=== PATIENT | male | born 1940 | race Caucasian/White ===

== ENCOUNTER → 2016-07-12 | Outpatient (CLI) | payer MEDICARE ==
[~2016-07-12] MED LIST: ALBU2.5V11 NEB; ALLO100T30 PO; AMLO2.5T PO; ASPI-496 PO; BETA15CR5 TP; CEFD300C2 PO; CEPH-368 PO; CHOL10003 PO; CHOL5000 PO; COLC0.6T37 PO; DIGO125T PO; DILT180C53 PO; DILT60TA30 PO; ERGO500017 PO; FOLI-17 PO; FOLI0.8T2 PO; FURO80TA3 PO; FURO80TA77 PO; LACT1CAP24 PO; LATA2.5D3 EACHEYE; LATA2.5D3 RIGHTEYE; LEVO1CAP3 PO; LEVO500T33 PO; LEVO750T6 PO; LOSA100T6 PO; LOSA25TA5 PO; LOSA50TA6 PO; MAGN400T7 PO; METO2.5T PO; METO25TA35 PO; METO50TA82 PO; METO5TAB5 PO; OMEG1CAP39 PO; OMEP-110 PO; OXYC-223 PO; OXYC5TAB3 PO; SILO8CAP PO; SPIR25TA3 PO; TIMO10DR12 EACHEYE; TIMO5DRO5 EACHEYE; TIMO5DRO5 RIGHTEYE; [UNRECOGNIZED DRUG - REMARK]; amlodipine PO; losartin PO; timolol EACHEYE
== END | disposition home or self-care (01) ==
LOC: RAD 13:26
PROVIDERS: ATTEND Radiology Radiation Oncology
DX: C34.12 Malignant neoplasm of upper lobe, left bronchus or lung (principal); J98.11 Atelectasis; I25.10 Atherosclerotic heart disease of native coronary artery without angina pectoris; J98.4 Other disorders of lung; I10 Essential (primary) hypertension
CPT/HCPCS: 71250

== ENCOUNTER → 2016-07-18 | Outpatient (CLI) | payer MEDICARE ==
[~2016-07-18] MED LIST changes: -CEFD300C2 PO; +CEFD300C37 PO
== END | disposition home or self-care (01) ==
LOC: ROC 13:18
PROVIDERS: ATTEND Radiology Radiation Oncology
DX: C34.11 Malignant neoplasm of upper lobe, right bronchus or lung (principal); R91.8 Other nonspecific abnormal finding of lung field; Z92.21 Personal history of antineoplastic chemotherapy
CPT/HCPCS: G0463

== ENCOUNTER → 2016-11-13 | Outpatient (CLI) | payer MEDICARE ==
[~2016-11-13] MED LIST changes: -LEVO500T33 PO; +LEVO500T47 PO; -OXYC-223 PO; +OXYC-306 PO
== END | disposition home or self-care (01) ==
LOC: CFH 09:50
PROVIDERS: ATTEND Radiology Radiation Oncology
DX: J84.10 Pulmonary fibrosis, unspecified (principal); J92.9 Pleural plaque without asbestos; I25.10 Atherosclerotic heart disease of native coronary artery without angina pectoris; C34.10 Malignant neoplasm of upper lobe, unspecified bronchus or lung; M79.89 Other specified soft tissue disorders; I10 Essential (primary) hypertension
CPT/HCPCS: 71250

== ENCOUNTER 2016-12-03 15:46 | Inpatient (IN) | payer MEDICARE ==
[~2016-12-03] VITALS: Ht 190.5 cm; Wt 102.7 kg
[2016-12-03] MEDS ORDERED: SODIUM CHLORIDE FLUSH 10ML SYR IVF ONE (16:30)
[2016-12-03 16:53] LABS: HEMATOCRIT 41.8 % (39.2-51.8); HEMOGLOBIN 14.1 g/dL (13.7-18.0); WHITE BLOOD COUNT 16.6 x10^3/uL (3.4-10)
[2016-12-03 16:54] LABS: BLOOD UREA NITROGEN 31 mg/dL (7-18)
[2016-12-03 16:59] LABS: ASPARTATE AMINO TRANSFERASE 19 U/L (15-37)
[2016-12-03 17:00] LABS: IS PT STATUS REG ER OR PRE ER? YES
[2016-12-03] MEDS ORDERED: AZITHROMYCIN 500 MG in SODIUM CHLORIDE 0.9% 250 ML IVPB ONE (18:00)
[2016-12-03] MEDS ORDERED: CEFTRIAXONE PMX 1GM/50ML 50 ML IVPB ONE (18:00)
[2016-12-03] MEDS ORDERED: CEFTRIAXONE PMX 1GM/50ML 50 ML ONE (18:29)
[2016-12-03] MEDS ORDERED: SODIUM CHLORIDE FLUSH 10ML SYR IVF PRN (18:30)
[2016-12-03] MEDS ORDERED: LABETALOL 5MG/ML, 20ML IVPush PRN (19:00)
[2016-12-03] MEDS ORDERED: DOCUSATE 100 MG CAPSULE PO PRN (19:00)
[2016-12-03] MEDS ORDERED: ACETAMINOPHEN 325 MG TABLET PO PRN (19:00)
[2016-12-03] MEDS ORDERED: morphine SULFATE 10 MG/ML, 1ML IVPush PRN (19:00)
[2016-12-03] MEDS ORDERED: ONDANSETRON 2MG/ML, 2ML IVPush PRN (19:00)
[2016-12-03 21:30] VITALS: BP 132/80
[2016-12-03] MEDS: ENOXAPARIN 40 MG/0.4 ML SQ SCH (22:26)
[2016-12-03] MEDS: PIPERACILLIN/TAZO/PMX 4.5GM 100 ML IV SCH (22:26)
[2016-12-03] MEDS: METOPROLOL TARTRATE 25 MG TABLET PO SCH (22:27)
[2016-12-03] MEDS: LOSARTAN 25MG TABLET PO SCH (22:27)
[2016-12-03] MEDS: TIMOLOL OPHTH 0.5%, 5ML RIGHTEYE SCH (22:27)
[2016-12-03] MEDS: TRAZODONE 50MG TABLET PO PRN (22:52)
[2016-12-03] MEDS: GUAIFENESIN/DM 200-20MG, 10ML UDC PO PRN (22:56)
[2016-12-03] MEDS ORDERED: ALBUTEROL SULFATE 2.5 MG/3 ML NPPB PRN (23:00)
[2016-12-04 01:48] VITALS: BP 112/73
[2016-12-04 05:39] LABS: HEMATOCRIT 41.5 % (39.2-51.8); WHITE BLOOD COUNT 15.8 x10^3/uL (3.4-10)
[2016-12-04 06:00] LABS: ASPARTATE AMINO TRANSFERASE 18 U/L (15-37); BLOOD UREA NITROGEN 33 mg/dL (7-18)
[2016-12-04] MEDS: PIPERACILLIN/TAZO/PMX 4.5GM 100 ML IV SCH ×3 (06:23→23:30)
[2016-12-04] MEDS: LATANOPROST OPHTH 0.005%, 2.5ML RIGHTEYE SCH (08:42)
[2016-12-04] MEDS: ASPIRIN 81 MG TABLET EC PO SCH (08:42)
[2016-12-04] MEDS: METOPROLOL TARTRATE 25 MG TABLET PO SCH ×2 (08:42→21:51)
[2016-12-04 08:51] VITALS: BP 116/66
[2016-12-04 13:59] VITALS: BP 101/68
[2016-12-04 19:07] VITALS: BP 97/59
[2016-12-04] MEDS: AZITHROMYCIN 500 MG in SODIUM CHLORIDE 0.9% 250 ML IV SCH (19:10)
[2016-12-04 21:50] VITALS: BP 126/76
[2016-12-04] MEDS: LOSARTAN 25MG TABLET PO SCH (21:50)
[2016-12-04] MEDS: ENOXAPARIN 40 MG/0.4 ML SQ SCH (21:51)
[2016-12-04] MEDS: TIMOLOL OPHTH 0.5%, 5ML RIGHTEYE SCH (21:51)
[2016-12-05] MEDS: GUAIFENESIN/DM 200-20MG, 10ML UDC PO PRN ×3 (01:46→23:44)
[2016-12-05 01:59] VITALS: BP 99/64
[2016-12-05 07:39] LABS: HEMATOCRIT 40.8 % (39.2-51.8); HEMOGLOBIN 13.7 g/dL (13.7-18.0); WHITE BLOOD COUNT 12.2 x10^3/uL (3.4-10)
[2016-12-05 07:41] LABS: BLOOD UREA NITROGEN 39 mg/dL (7-18)
[2016-12-05] MEDS: METOPROLOL TARTRATE 25 MG TABLET PO SCH ×2 (08:09→20:50)
[2016-12-05] MEDS: PIPERACILLIN/TAZO/PMX 4.5GM 100 ML IV SCH ×2 (08:09→17:24)
[2016-12-05] MEDS: LATANOPROST OPHTH 0.005%, 2.5ML RIGHTEYE SCH (08:10)
[2016-12-05] MEDS: ASPIRIN 81 MG TABLET EC PO SCH (08:10)
[2016-12-05 08:13] VITALS: BP 115/65
[2016-12-05 09:12] VITALS: BP 110/66
[2016-12-05 14:15] VITALS: BP 96/63
[2016-12-05] MEDS: ENOXAPARIN 40 MG/0.4 ML SQ SCH (15:17)
[2016-12-05] MEDS: SODIUM CHLORIDE 0.9% 500 ML IV SCH (17:24)
[2016-12-05 19:32] VITALS: BP 106/69
[2016-12-05] MEDS: TIMOLOL OPHTH 0.5%, 5ML RIGHTEYE SCH (20:50)
[2016-12-05] MEDS: AZITHROMYCIN 500 MG in SODIUM CHLORIDE 0.9% 250 ML IV SCH (20:51)
[2016-12-05] MEDS: TRAZODONE 50MG TABLET PO PRN (23:44)
[2016-12-06] MEDS: PIPERACILLIN/TAZO/PMX 4.5GM 100 ML IV SCH ×3 (00:43→17:30)
[2016-12-06] MEDS: SODIUM CHLORIDE 0.9% 500 ML IV SCH ×4 (00:43→20:45)
[2016-12-06] MEDS: TRAZODONE 50MG TABLET PO PRN ×2 (00:47→22:24)
[2016-12-06 03:06] VITALS: BP 103/70
[2016-12-06 05:53] LABS: HEMOGLOBIN 12.8 g/dL (13.7-18.0); WHITE BLOOD COUNT 9.4 x10^3/uL (3.4-10)
[2016-12-06 05:54] LABS: BLOOD UREA NITROGEN 44 mg/dL (7-18)
[2016-12-06] MEDS: METOPROLOL TARTRATE 25 MG TABLET PO SCH ×2 (08:02→20:45)
[2016-12-06] MEDS: ASPIRIN 81 MG TABLET EC PO SCH (08:02)
[2016-12-06] MEDS: LATANOPROST OPHTH 0.005%, 2.5ML RIGHTEYE SCH (08:03)
[2016-12-06 08:20] VITALS: BP 121/74
[2016-12-06 10:27] LABS: TOTAL IRON BINDING CAPACITY 270 mcg/dL (250-450)
[2016-12-06 13:20] VITALS: BP 119/76
[2016-12-06] MEDS: ENOXAPARIN 40 MG/0.4 ML SQ SCH (18:01)
[2016-12-06 18:32] VITALS: BP 135/82
[2016-12-06] MEDS: AZITHROMYCIN 500 MG in SODIUM CHLORIDE 0.9% 250 ML IV SCH (20:42)
[2016-12-06] MEDS: TIMOLOL OPHTH 0.5%, 5ML RIGHTEYE SCH (20:45)
[2016-12-07] MEDS: PIPERACILLIN/TAZO/PMX 4.5GM 100 ML IV SCH ×3 (00:48→18:09)
[2016-12-07 03:01] VITALS: BP 125/77
[2016-12-07] MEDS: SODIUM CHLORIDE 0.9% 500 ML IV SCH ×3 (04:48→23:40)
[2016-12-07] MEDS: GUAIFENESIN/DM 200-20MG, 10ML UDC PO PRN (04:48)
[2016-12-07 05:25] LABS: BLOOD UREA NITROGEN 43 mg/dL (7-18)
[2016-12-07 08:42] VITALS: BP 157/85
[2016-12-07] MEDS: LATANOPROST OPHTH 0.005%, 2.5ML RIGHTEYE SCH (08:44)
[2016-12-07] MEDS: METOPROLOL TARTRATE 25 MG TABLET PO SCH ×2 (08:44→21:38)
[2016-12-07] MEDS: ASPIRIN 81 MG TABLET EC PO SCH (08:44)
[2016-12-07 13:50] VITALS: BP 149/77
[2016-12-07] MEDS: ENOXAPARIN 40 MG/0.4 ML SQ SCH (19:00)
[2016-12-07] MEDS ORDERED: ONDANSETRON 2MG/ML, 2ML IVPush PRN (19:30)
[2016-12-07] MEDS ORDERED: ACETAMINOPHEN 325 MG TABLET PO PRN (19:30)
[2016-12-07] MEDS ORDERED: DOCUSATE 100 MG CAPSULE PO PRN (19:30)
[2016-12-07 20:00] VITALS: BP 155/89
[2016-12-07] MEDS: TIMOLOL OPHTH 0.5%, 5ML RIGHTEYE SCH (21:00)
[2016-12-07] MEDS: AZITHROMYCIN 500 MG in SODIUM CHLORIDE 0.9% 250 ML IV SCH (21:37)
[2016-12-07] MEDS: TRAZODONE 50MG TABLET PO PRN (23:44)
[2016-12-08] MEDS: PIPERACILLIN/TAZO/PMX 4.5GM 100 ML IV SCH ×3 (01:18→17:11)
[2016-12-08 02:05] VITALS: BP 141/82
[2016-12-08] MEDS: GUAIFENESIN/DM 200-20MG, 10ML UDC PO PRN ×2 (03:05→18:28)
[2016-12-08 05:23] LABS: HEMATOCRIT 37.3 % (39.2-51.8); HEMOGLOBIN 12.4 g/dL (13.7-18.0); WHITE BLOOD COUNT 8.3 x10^3/uL (3.4-10)
[2016-12-08 05:39] LABS: BLOOD UREA NITROGEN 38 mg/dL (7-18)
[2016-12-08 07:40] VITALS: BP 161/99
[2016-12-08] MEDS: ASPIRIN 81 MG TABLET EC PO SCH (08:57)
[2016-12-08] MEDS: LATANOPROST OPHTH 0.005%, 2.5ML RIGHTEYE SCH (08:57)
[2016-12-08] MEDS: SODIUM CHLORIDE 0.9% 500 ML IV SCH ×3 (08:57→23:30)
[2016-12-08] MEDS: METOPROLOL TARTRATE 25 MG TABLET PO SCH ×2 (08:57→20:32)
[2016-12-08] MEDS: ENOXAPARIN 40 MG/0.4 ML SQ SCH (08:59)
[2016-12-08 16:00] VITALS: BP 159/101
[2016-12-08] MEDS: LABETALOL 5MG/ML, 20ML IVPush PRN (16:55)
[2016-12-08] MEDS ORDERED: ALBUTEROL SULFATE 2.5 MG/3 ML ONE (18:44)
[2016-12-08 19:25] VITALS: BP 138/83
[2016-12-08] MEDS: TIMOLOL OPHTH 0.5%, 5ML RIGHTEYE SCH (20:32)
[2016-12-08] MEDS: AZITHROMYCIN 500 MG in SODIUM CHLORIDE 0.9% 250 ML IV SCH (20:32)
[2016-12-08] MEDS ORDERED: ALBUTEROL SULFATE 2.5 MG/3 ML NPPB PRN (23:00)
[2016-12-09] MEDS: PIPERACILLIN/TAZO/PMX 4.5GM 100 ML IV SCH ×3 (01:38→17:24)
[2016-12-09 01:39] VITALS: BP 153/92
[2016-12-09] MEDS: GUAIFENESIN/DM 200-20MG, 10ML UDC PO PRN (01:53)
[2016-12-09] MEDS: SODIUM CHLORIDE 0.9% 500 ML IV SCH (03:56)
[2016-12-09 05:45] LABS: BLOOD UREA NITROGEN 36 mg/dL (7-18)
[2016-12-09] MEDS: METOPROLOL TARTRATE 25 MG TABLET PO SCH ×2 (08:18→22:07)
[2016-12-09] MEDS: ASPIRIN 81 MG TABLET EC PO SCH (08:18)
[2016-12-09] MEDS: LATANOPROST OPHTH 0.005%, 2.5ML RIGHTEYE SCH (08:19)
[2016-12-09 08:48] VITALS: BP 170/98
[2016-12-09 10:10] VITALS: BP 160/101
[2016-12-09] MEDS: LABETALOL 5MG/ML, 20ML IVPush PRN (10:15)
[2016-12-09 13:46] VITALS: BP 150/91
[2016-12-09] MEDS: ENOXAPARIN 40 MG/0.4 ML SQ SCH (19:00)
[2016-12-09 20:48] VITALS: BP 154/96
[2016-12-09] MEDS: TIMOLOL OPHTH 0.5%, 5ML RIGHTEYE SCH (22:07)
[2016-12-10] MEDS: PIPERACILLIN/TAZO/PMX 4.5GM 100 ML IV SCH ×2 (03:22→10:09)
[2016-12-10 03:27] VITALS: BP 168/96
[2016-12-10] MEDS: GUAIFENESIN/DM 200-20MG, 10ML UDC PO PRN (04:49)
[2016-12-10 05:19] LABS: BLOOD UREA NITROGEN 33 mg/dL (7-18)
[2016-12-10 08:39] VITALS: BP 177/96
[2016-12-10] MEDS: METOPROLOL TARTRATE 25 MG TABLET PO SCH (10:09)
[2016-12-10] MEDS: ASPIRIN 81 MG TABLET EC PO SCH (10:09)
[2016-12-10] MEDS: LATANOPROST OPHTH 0.005%, 2.5ML RIGHTEYE SCH (10:09)
[2016-12-10] MEDS ORDERED: FUROSEMIDE 40 MG/4 ML IV ONE (12:00)
[2016-12-10 14:31] VITALS: BP 142/88
[2016-12-10] MEDS ORDERED: CEFD300C37 PO (15:11)
[2016-12-10] MEDS ORDERED: FURO40TA6 PO (16:11)
== END 2016-12-10 18:30 | disposition home or self-care (01) | DRG 871 ==
LOC: ED 17:01 → EDIP 18:12 → 5SO 21:10
PROVIDERS: ADMIT Internal Medicine; ATTEND Internal Medicine
DX: A41.9 Sepsis, unspecified organism (principal); J10.08 Influenza due to other identified influenza virus with other specified pneumonia; J96.01 Acute respiratory failure with hypoxia; I50.43 Acute on chronic combined systolic (congestive) and diastolic (congestive) heart failure; J70.0 Acute pulmonary manifestations due to radiation; N17.9 Acute kidney failure, unspecified; E44.0 Moderate protein-calorie malnutrition; J15.9 Unspecified bacterial pneumonia; I13.0 Hypertensive heart and chronic kidney disease with heart failure and stage 1 through stage 4 chronic kidney disease, or unspecified chronic kidney disease; C34.90 Malignant neoplasm of unspecified part of unspecified bronchus or lung; E87.2 Acidosis; N39.0 Urinary tract infection, site not specified; N18.3 Chronic kidney disease, stage 3 (moderate); D64.9 Anemia, unspecified; E11.22 Type 2 diabetes mellitus with diabetic chronic kidney disease; E87.5 Hyperkalemia; E87.8 Other disorders of electrolyte and fluid balance, not elsewhere classified; I48.2 Chronic atrial fibrillation; H91.90 Unspecified hearing loss, unspecified ear; Z66 Do not resuscitate; K46.9 Unspecified abdominal hernia without obstruction or gangrene; M10.9 Gout, unspecified; N40.0 Benign prostatic hyperplasia without lower urinary tract symptoms; Z88.8 Allergy status to other drugs, medicaments and biological substances; Z97.0 Presence of artificial eye; Z90.49 Acquired absence of other specified parts of digestive tract; Z85.118 Personal history of other malignant neoplasm of bronchus and lung; Z85.528 Personal history of other malignant neoplasm of kidney; Z87.891 Personal history of nicotine dependence; Z92.21 Personal history of antineoplastic chemotherapy; Z92.3 Personal history of irradiation; Y84.2 Radiological procedure and radiotherapy as the cause of abnormal reaction of the patient, or of later complication, without mention of misadventure at the time of the procedure
CPT/HCPCS: 36415; 71010; 76770; 80048; 80053; 81001; 82570; 83540; 83550; 83605; 83735; 83880; 84100; 84145; 84300; 84484; 85025; 87040; 87070; 87077; 87205; 87324; 93005; 94640; 96365; 96367; J0456; J0696; J1940; J2543; J7613; J7040; J7050

== ENCOUNTER → 2017-03-10 | Outpatient (CLI) | payer MEDICARE ==
[~2017-03-10] MED LIST changes: +FURO40TA6 PO
== END | disposition home or self-care (01) ==
LOC: CFH 09:44
PROVIDERS: ATTEND Radiology Radiation Oncology
DX: C34.10 Malignant neoplasm of upper lobe, unspecified bronchus or lung (principal); R91.1 Solitary pulmonary nodule; J90 Pleural effusion, not elsewhere classified
CPT/HCPCS: 71250

== ENCOUNTER → 2017-03-13 | Outpatient (CLI) | payer MEDICARE | LOC: ROC 12:44 | PROVIDERS: ATTEND Radiology Radiation Oncology | DX: C34.12 Malignant neoplasm of upper lobe, left bronchus or lung (principal); Z88.8 Allergy status to other drugs, medicaments and biological substances; Z79.891 Long term (current) use of opiate analgesic | CPT/HCPCS: G0463 ==

== ENCOUNTER → 2017-04-01 | Outpatient (CLI) | payer MEDICARE ==
[~2017-04-01] MED LIST changes: +FURO20TA3 PO
[2017-04-01 11:40] LABS: BASOPHILS # (AUTO) 0.03 x10^3/uL (0-0.1); BASOPHILS % (AUTO) 1 % (0-1); EOSINOPHILS # (AUTO) 0.15 x10^3/uL (0-0.4); EOSINOPHILS % (AUTO) 2 % (1-7); LYMPHOCYTES # (AUTO) 1.14 x10^3/uL (1-3.4); LYMPHOCYTES % (AUTO) 18 % (22-44); MD NO; MEAN CORPUSCULAR HEMOGLOBIN 35.2 pg (27.5-34.5); MEAN CORPUSCULAR HGB CONC 34.3 g/dL (33.2-36.2); MEAN CORPUSCULAR VOLUME 102.7 fL (81-97); MEAN PLATELET VOLUME 7.4 fL (7.4-10.4); MONOCYTES # (AUTO) 0.68 x10^3/uL (0.2-0.8); MONOCYTES % (AUTO) 11 % (2-9); NEUTROPHILS # (AUTO) 4.48 x10^3/uL (1.8-6.8); NEUTROPHILS % (AUTO) 69 % (42-75); PLATELET COUNT 249 x10^3/uL (130-400); RED BLOOD COUNT 4.15 x10^6/uL (4.38-5.82); RED CELL DISTRIBUTION WIDTH 14.2 % (9.4-14.8)
[2017-04-01 12:12] LABS: ALBUMIN 3.3 g/dL (3.4-5.0); ANION GAP 7 mmol/L (5-15); CALCIUM 8.7 mg/dL (8.5-10.1); CHLORIDE 99 mmol/L (98-107)
[2017-04-01 12:16] LABS: ALANINE AMINOTRANSFERASE 33 U/L (12-78); ALKALINE PHOSPHATASE 85 U/L (45-117); BILIRUBIN,TOTAL 0.5 mg/dL (0.2-1.0); CREATININE 1.23 mg/dL (0.7-1.3); TOTAL PROTEIN 6.9 g/dL (6.4-8.2)
== END | disposition home or self-care (01) ==
LOC: STAR 10:18
PROVIDERS: ATTEND Surgery
DX: R94.31 Abnormal electrocardiogram [ECG] [EKG] (principal); K43.2 Incisional hernia without obstruction or gangrene
CPT/HCPCS: 36415; 80053; 85025; 93005

== ENCOUNTER → 2017-07-10 | Outpatient (CLI) | payer MEDICARE | END | disposition home or self-care (01) | LOC: ROC 10:03 | PROVIDERS: ATTEND Radiology Radiation Oncology | DX: C34.12 Malignant neoplasm of upper lobe, left bronchus or lung (principal) | CPT/HCPCS: G0463 ==

== ENCOUNTER 2017-08-07 11:54 | Inpatient (IN) | payer MEDICARE ==
[~2017-08-07] VITALS: Ht 190.5 cm; Wt 103.0 kg
[2017-08-07] MEDS ORDERED: ALBUTEROL/IPRATROPIUM 2.5MG/0.5MG, 3 ML ONE (12:56)
[2017-08-07] MEDS ORDERED: SODIUM CHLORIDE FLUSH 10ML SYR IVF ONE (13:00)
[2017-08-07] MEDS ORDERED: ALBUTEROL/IPRATROPIUM 2.5MG/0.5MG, 3 ML NPPB ONE ×2 (13:00→15:30)
[2017-08-07] MEDS ORDERED: BUDE10.2 INH (13:07)
[2017-08-07] MEDS ORDERED: LOSA25TA5 PO (13:07)
[2017-08-07 13:08] LABS: BASOPHILS # (AUTO) 0.03 x10^3/uL (0-0.1); BASOPHILS % (AUTO) 0 % (0-1); EOSINOPHILS # (AUTO) 0.21 x10^3/uL (0-0.4); EOSINOPHILS % (AUTO) 3 % (1-7); LYMPHOCYTES % (AUTO) 13 % (22-44); MD NO; MEAN CORPUSCULAR HEMOGLOBIN 34.7 pg (27.5-34.5); MEAN CORPUSCULAR HGB CONC 33.6 g/dL (33.2-36.2); MEAN CORPUSCULAR VOLUME 103.4 fL (81-97); MEAN PLATELET VOLUME 7.4 fL (7.4-10.4); MONOCYTES # (AUTO) 0.47 x10^3/uL (0.2-0.8); MONOCYTES % (AUTO) 6 % (2-9); NEUTROPHILS # (AUTO) 5.79 x10^3/uL (1.8-6.8); NEUTROPHILS % (AUTO) 77 % (42-75); PLATELET COUNT 253 x10^3/uL (130-400); RED BLOOD COUNT 4.12 x10^6/uL (4.38-5.82); RED CELL DISTRIBUTION WIDTH 14.7 % (9.4-14.8)
[2017-08-07 13:21] LABS: ALANINE AMINOTRANSFERASE 45 U/L (12-78); ALBUMIN 3.3 g/dL (3.4-5.0); ANION GAP 8 mmol/L (5-15); CALCIUM 8.3 mg/dL (8.5-10.1); CHLORIDE 100 mmol/L (98-107); CREATININE 1.27 mg/dL (0.7-1.3)
[2017-08-07 13:24] LABS: ALKALINE PHOSPHATASE 88 U/L (45-117); BILIRUBIN,TOTAL 0.5 mg/dL (0.2-1.0); TOTAL PROTEIN 6.7 g/dL (6.4-8.2); TROPONIN I < 0.015 ng/mL (0.000-0.045)
[2017-08-07 15:35] LABS: MICROSCOPIC AUTO
[2017-08-07 15:38] LABS: CULTURE INDICATED? NO
[2017-08-07 17:26] LABS: FOLATE LEVEL > 20.0 ng/mL (3.1-17.5)
[2017-08-07] MEDS ORDERED: BISACODYL 10 MG SUPP PR PRN (18:30)
[2017-08-07] MEDS ORDERED: POLYETHYLENE GLYCOL 17 GM PACKET PO PRN (18:30)
[2017-08-07] MEDS ORDERED: GUAIFENESIN/DM 200-20MG, 10ML UDC PO PRN (18:30)
[2017-08-07] MEDS ORDERED: ACETAMINOPHEN 325 MG TABLET PO PRN (18:30)
[2017-08-07] MEDS ORDERED: ONDANSETRON 2MG/ML, 2ML IVPush PRN (18:30)
[2017-08-07] MEDS ORDERED: ALBUTEROL SULFATE 2.5 MG/3 ML NPPB PRN (20:00)
[2017-08-07] MEDS ORDERED: TIMOLOL OPHTH 0.5%, 5ML RIGHTEYE SCH (21:00)
[2017-08-07] MEDS: METOPROLOL TARTRATE 25 MG TABLET PO SCH (21:34)
[2017-08-07] MEDS: SODIUM CHLORIDE FLUSH 10ML SYR IVF SCH (21:34)
[2017-08-07] MEDS: LOSARTAN 25MG TABLET PO SCH (21:34)
[2017-08-07 21:38] VITALS: BP 157/91
[2017-08-07] MEDS: TEMAZEPAM 15 MG CAPSULE PO PRN (23:19)
[2017-08-08 01:40] VITALS: BP 177/97
[2017-08-08] MEDS: FUROSEMIDE 20 MG/2 ML IV SCH ×3 (01:48→16:53)
[2017-08-08 05:09] LABS: BASOPHILS # (AUTO) 0.04 x10^3/uL (0-0.1); BASOPHILS % (AUTO) 1 % (0-1); EOSINOPHILS # (AUTO) 0.35 x10^3/uL (0-0.4); EOSINOPHILS % (AUTO) 5 % (1-7); LYMPHOCYTES % (AUTO) 12 % (22-44); MD NO; MEAN CORPUSCULAR HEMOGLOBIN 34.8 pg (27.5-34.5); MEAN CORPUSCULAR HGB CONC 33.2 g/dL (33.2-36.2); MEAN CORPUSCULAR VOLUME 104.9 fL (81-97); MEAN PLATELET VOLUME 7.4 fL (7.4-10.4); MONOCYTES # (AUTO) 0.67 x10^3/uL (0.2-0.8); MONOCYTES % (AUTO) 10 % (2-9); NEUTROPHILS # (AUTO) 5.05 x10^3/uL (1.8-6.8); NEUTROPHILS % (AUTO) 73 % (42-75); PLATELET COUNT 251 x10^3/uL (130-400); RED BLOOD COUNT 3.92 x10^6/uL (4.38-5.82); RED CELL DISTRIBUTION WIDTH 15.3 % (9.4-14.8)
[2017-08-08 05:22] LABS: ALANINE AMINOTRANSFERASE 37 U/L (12-78); ANION GAP 6 mmol/L (5-15); CALCIUM 8.4 mg/dL (8.5-10.1); CHLORIDE 103 mmol/L (98-107); CREATININE 1.21 mg/dL (0.7-1.3)
[2017-08-08 05:26] LABS: ALKALINE PHOSPHATASE 80 U/L (45-117); BILIRUBIN,TOTAL 0.5 mg/dL (0.2-1.0); TOTAL PROTEIN 6.1 g/dL (6.4-8.2); TROPONIN I < 0.015 ng/mL (0.000-0.045)
[2017-08-08 07:24] VITALS: BP 142/87
[2017-08-08] MEDS ORDERED: LATANOPROST OPHTH 0.005%, 2.5ML RIGHTEYE SCH (09:00)
[2017-08-08] MEDS: CHOLECALCIFEROL 1,000 UNIT TABLET PO SCH (10:07)
[2017-08-08] MEDS: METOPROLOL TARTRATE 25 MG TABLET PO SCH ×2 (10:08→22:01)
[2017-08-08] MEDS: ASPIRIN 81 MG TABLET EC PO SCH (10:08)
[2017-08-08] MEDS: SODIUM CHLORIDE FLUSH 10ML SYR IVF SCH ×2 (10:08→22:00)
[2017-08-08] MEDS: LOSARTAN 25MG TABLET PO SCH ×2 (10:08→22:00)
[2017-08-08] MEDS: SENNA/DOCUSATE TABLET PO SCH (10:09)
[2017-08-08] MEDS: TEMPLATE NON-FORMULARY MED. (Levomefolate/B6/B12/Algal Oil** (Metanx Capsule**) 1 TAB) HOMEMEDPO SCH (10:16)
[2017-08-08] MEDS: FLUTICASONE/VILANTEROL 100-25MCG/INH INH SCH (11:03)
[2017-08-08 12:04] LABS: TROPONIN I < 0.015 ng/mL (0.000-0.045)
[2017-08-08 13:54] VITALS: BP 130/77
[2017-08-08 19:20] VITALS: BP 112/63
[2017-08-08 22:03] VITALS: BP 115/78
[2017-08-08] MEDS: TEMAZEPAM 15 MG CAPSULE PO PRN (22:23)
[2017-08-08] MEDS: LATANOPROST OPHTH 0.005%, 2.5ML RIGHTEYE SCH (22:37)
[2017-08-09] VITALS (7 sets, daily range): BP systolic 110–161; BP diastolic 69–97
[2017-08-09 05:08] LABS: BASOPHILS # (AUTO) 0.06 x10^3/uL (0-0.1); BASOPHILS % (AUTO) 1 % (0-1); EOSINOPHILS # (AUTO) 0.47 x10^3/uL (0-0.4); EOSINOPHILS % (AUTO) 7 % (1-7); LYMPHOCYTES # (AUTO) 0.83 x10^3/uL (1-3.4); LYMPHOCYTES % (AUTO) 12 % (22-44); MD NO; MEAN CORPUSCULAR HEMOGLOBIN 35.1 pg (27.5-34.5); MEAN CORPUSCULAR HGB CONC 33.9 g/dL (33.2-36.2); MEAN CORPUSCULAR VOLUME 103.4 fL (81-97); MEAN PLATELET VOLUME 7.5 fL (7.4-10.4); MONOCYTES # (AUTO) 0.75 x10^3/uL (0.2-0.8); MONOCYTES % (AUTO) 11 % (2-9); NEUTROPHILS # (AUTO) 5.05 x10^3/uL (1.8-6.8); NEUTROPHILS % (AUTO) 71 % (42-75); PLATELET COUNT 235 x10^3/uL (130-400); RED BLOOD COUNT 4.06 x10^6/uL (4.38-5.82); RED CELL DISTRIBUTION WIDTH 15.1 % (9.4-14.8)
[2017-08-09 05:14] LABS: ANION GAP 7 mmol/L (5-15); CALCIUM 8.7 mg/dL (8.5-10.1); CHLORIDE 103 mmol/L (98-107); CREATININE 1.29 mg/dL (0.7-1.3)
[2017-08-09] MEDS: TEMPLATE NON-FORMULARY MED. (Levomefolate/B6/B12/Algal Oil** (Metanx Capsule**) 1 TAB) HOMEMEDPO SCH (08:09)
[2017-08-09] MEDS: FUROSEMIDE 20 MG/2 ML IV SCH ×2 (08:36→16:36)
[2017-08-09] MEDS: ASPIRIN 81 MG TABLET EC PO SCH (08:37)
[2017-08-09] MEDS: LOSARTAN 25MG TABLET PO SCH ×2 (08:37→22:25)
[2017-08-09] MEDS: CHOLECALCIFEROL 1,000 UNIT TABLET PO SCH (08:37)
[2017-08-09] MEDS: METOPROLOL TARTRATE 25 MG TABLET PO SCH ×2 (08:38→22:25)
[2017-08-09] MEDS: SENNA/DOCUSATE TABLET PO SCH (08:38)
[2017-08-09] MEDS: SODIUM CHLORIDE FLUSH 10ML SYR IVF SCH ×2 (08:38→22:25)
[2017-08-09] MEDS: TIMOLOL OPHTH 0.5%, 5ML RIGHTEYE SCH (08:42)
[2017-08-09] MEDS: FLUTICASONE/VILANTEROL 100-25MCG/INH INH SCH (08:42)
[2017-08-09] MEDS: LATANOPROST OPHTH 0.005%, 2.5ML RIGHTEYE SCH (22:25)
[2017-08-09] MEDS: TEMAZEPAM 15 MG CAPSULE PO PRN (23:09)
[2017-08-10 01:35] VITALS: BP 151/80
[2017-08-10 05:40] LABS: ANION GAP 8 mmol/L (5-15); CALCIUM 8.4 mg/dL (8.5-10.1); CHLORIDE 102 mmol/L (98-107); CREATININE 1.23 mg/dL (0.7-1.3)
[2017-08-10 07:10] VITALS: BP 137/90
[2017-08-10] MEDS: TEMPLATE NON-FORMULARY MED. (Levomefolate/B6/B12/Algal Oil** (Metanx Capsule**) 1 TAB) HOMEMEDPO SCH (09:00)
[2017-08-10] MEDS: FUROSEMIDE 20 MG/2 ML IV SCH ×2 (10:02→17:40)
[2017-08-10] MEDS: SODIUM CHLORIDE FLUSH 10ML SYR IVF SCH ×2 (10:02→21:28)
[2017-08-10] MEDS: FLUTICASONE/VILANTEROL 100-25MCG/INH INH SCH (10:02)
[2017-08-10] MEDS: TIMOLOL OPHTH 0.5%, 5ML RIGHTEYE SCH (10:03)
[2017-08-10] MEDS: SENNA/DOCUSATE TABLET PO SCH (10:03)
[2017-08-10] MEDS: CHOLECALCIFEROL 1,000 UNIT TABLET PO SCH (10:03)
[2017-08-10] MEDS: ASPIRIN 81 MG TABLET EC PO SCH (10:03)
[2017-08-10] MEDS: METOPROLOL TARTRATE 25 MG TABLET PO SCH ×2 (10:04→21:29)
[2017-08-10] MEDS: LOSARTAN 25MG TABLET PO SCH ×2 (10:04→21:29)
[2017-08-10 14:39] VITALS: BP 137/69
[2017-08-10 20:01] VITALS: BP 109/67
[2017-08-10 21:31] VITALS: BP 128/75
[2017-08-10] MEDS: LATANOPROST OPHTH 0.005%, 2.5ML RIGHTEYE SCH (21:31)
[2017-08-11 02:02] VITALS: BP 143/73
[2017-08-11] MEDS: TEMAZEPAM 15 MG CAPSULE PO PRN ×2 (02:09→20:48)
[2017-08-11 04:55] LABS: ANION GAP 10 mmol/L (5-15); CHLORIDE 103 mmol/L (98-107)
[2017-08-11 04:56] LABS: CREATININE 1.39 mg/dL (0.7-1.3)
[2017-08-11 07:37] VITALS: BP 153/95
[2017-08-11] MEDS: TEMPLATE NON-FORMULARY MED. (Levomefolate/B6/B12/Algal Oil** (Metanx Capsule**) 1 TAB) HOMEMEDPO SCH (09:00)
[2017-08-11] MEDS: FLUTICASONE/VILANTEROL 100-25MCG/INH INH SCH (09:37)
[2017-08-11] MEDS: SODIUM CHLORIDE FLUSH 10ML SYR IVF SCH ×2 (09:37→20:41)
[2017-08-11] MEDS: METOPROLOL TARTRATE 25 MG TABLET PO SCH ×2 (09:38→20:41)
[2017-08-11] MEDS: LOSARTAN 25MG TABLET PO SCH ×2 (09:38→20:41)
[2017-08-11] MEDS: ASPIRIN 81 MG TABLET EC PO SCH (09:38)
[2017-08-11] MEDS: SENNA/DOCUSATE TABLET PO SCH (09:38)
[2017-08-11] MEDS: CHOLECALCIFEROL 1,000 UNIT TABLET PO SCH (09:39)
[2017-08-11] MEDS: TIMOLOL OPHTH 0.5%, 5ML RIGHTEYE SCH (09:40)
[2017-08-11] MEDS ORDERED: FLUT1AER INH (11:48)
[2017-08-11] MEDS ORDERED: PRED10TA PO (11:48)
[2017-08-11] MEDS ORDERED: FUROSEMIDE 40 MG/4 ML IV ONE (12:30)
[2017-08-11 13:02] VITALS: BP 145/81
[2017-08-11 20:40] VITALS: BP 126/85
[2017-08-11] MEDS: LATANOPROST OPHTH 0.005%, 2.5ML RIGHTEYE SCH (20:41)
[2017-08-12 00:27] VITALS: BP 144/90
[2017-08-12 07:58] VITALS: BP 159/91
[2017-08-12] MEDS: TEMPLATE NON-FORMULARY MED. (Levomefolate/B6/B12/Algal Oil** (Metanx Capsule**) 1 TAB) HOMEMEDPO SCH (09:00)
[2017-08-12] MEDS ORDERED: FUROSEMIDE 20 MG TABLET PO SCH (09:00)
[2017-08-12] MEDS: FLUTICASONE/VILANTEROL 100-25MCG/INH INH SCH (09:45)
[2017-08-12] MEDS: SODIUM CHLORIDE FLUSH 10ML SYR IVF SCH (09:45)
[2017-08-12] MEDS: CHOLECALCIFEROL 1,000 UNIT TABLET PO SCH (09:46)
[2017-08-12] MEDS: ASPIRIN 81 MG TABLET EC PO SCH (09:46)
[2017-08-12] MEDS: METOPROLOL TARTRATE 25 MG TABLET PO SCH (09:47)
[2017-08-12] MEDS: LOSARTAN 25MG TABLET PO SCH (09:47)
[2017-08-12] MEDS: TIMOLOL OPHTH 0.5%, 5ML RIGHTEYE SCH (09:47)
[2017-08-12] MEDS: SENNA/DOCUSATE TABLET PO SCH (09:51)
[2017-08-12 12:00] VITALS: BP 145/90
[2017-08-12 14:09] VITALS: BP 122/75
== END 2017-08-12 15:28 | disposition home or self-care (01) | DRG 291 ==
LOC: ED 14:18 → EDIP 18:26 → 5SO 20:54
PROVIDERS: ADMIT Internal Medicine; ATTEND Internal Medicine
DX: I13.0 Hypertensive heart and chronic kidney disease with heart failure and stage 1 through stage 4 chronic kidney disease, or unspecified chronic kidney disease (principal); I50.33 Acute on chronic diastolic (congestive) heart failure; J96.01 Acute respiratory failure with hypoxia; D68.69 Other thrombophilia; E11.22 Type 2 diabetes mellitus with diabetic chronic kidney disease; I27.20 Pulmonary hypertension, unspecified; E87.1 Hypo-osmolality and hyponatremia; N18.3 Chronic kidney disease, stage 3 (moderate); C34.90 Malignant neoplasm of unspecified part of unspecified bronchus or lung; J98.11 Atelectasis; I48.2 Chronic atrial fibrillation; D75.89 Other specified diseases of blood and blood-forming organs; G47.00 Insomnia, unspecified; F41.9 Anxiety disorder, unspecified; H91.90 Unspecified hearing loss, unspecified ear; J44.9 Chronic obstructive pulmonary disease, unspecified; K43.9 Ventral hernia without obstruction or gangrene; N40.0 Benign prostatic hyperplasia without lower urinary tract symptoms; M10.9 Gout, unspecified; Z66 Do not resuscitate; Z80.3 Family history of malignant neoplasm of breast; Z87.01 Personal history of pneumonia (recurrent); Z92.21 Personal history of antineoplastic chemotherapy; Z92.3 Personal history of irradiation; Z97.0 Presence of artificial eye; Z87.440 Personal history of urinary (tract) infections; Z90.49 Acquired absence of other specified parts of digestive tract; Z88.8 Allergy status to other drugs, medicaments and biological substances; Z87.891 Personal history of nicotine dependence
CPT/HCPCS: 36415; 71045; 71046; 71250; 78582; 80048; 80053; 81001; 82607; 82746; 83880; 84484; 85025; 85379; 93005; 93970; 94640; 99285; C8929; J1940; A9540; A9558; C9898; J7512

== ENCOUNTER → 2017-11-05 | Outpatient (CLI) | payer MEDICARE ==
[~2017-11-05] MED LIST changes: +BUDE10.2 INH; +FLUT1AER INH; +PRED10TA PO; -SPIR25TA3 PO; +SPIR25TA5 PO
== END | disposition home or self-care (01) ==
LOC: CFH 09:42
PROVIDERS: ATTEND Radiology Radiation Oncology
DX: J90 Pleural effusion, not elsewhere classified (principal); R91.8 Other nonspecific abnormal finding of lung field; C34.12 Malignant neoplasm of upper lobe, left bronchus or lung; I10 Essential (primary) hypertension
CPT/HCPCS: 71250

== ENCOUNTER → 2017-11-06 | Outpatient (CLI) | payer MEDICARE | END | disposition home or self-care (01) | LOC: ROC 08:02 | PROVIDERS: ATTEND Radiology Radiation Oncology | DX: C34.12 Malignant neoplasm of upper lobe, left bronchus or lung (principal) | CPT/HCPCS: G0463 ==

== ENCOUNTER 2018-01-06 10:33 | Inpatient (IN) | payer MEDICARE ==
[~2018-01-06] VITALS: Ht 190.5 cm; Wt 97.9 kg
[~2018-01-06 10:33] MED LIST changes: -AMLO2.5T PO; +AMLO2.5T3 PO; -LOSA100T6 PO; +LOSA100T7 PO; -LOSA25TA5 PO; +LOSA25TA6 PO; -LOSA50TA6 PO; +LOSA50TA7 PO; -SILO8CAP PO; +SILO8CAP2 PO
[2018-01-06] MEDS ORDERED: SODIUM CHLORIDE FLUSH 10ML SYR IVF ONE (11:30)
[2018-01-06] MEDS ORDERED: ALBUTEROL SULFATE 2.5 MG/3 ML NPPB ONE (11:30)
[2018-01-06] MEDS ORDERED: ALBUTEROL SULFATE 2.5 MG/3 ML ONE (11:34)
[2018-01-06 12:07] LABS: ALANINE AMINOTRANSFERASE 39 U/L (12-78); ALBUMIN 3.3 g/dL (3.4-5.0); ANION GAP 5 mmol/L (5-15); BASOPHILS # (AUTO) 0.03 x10^3/uL (0-0.1); BASOPHILS % (AUTO) 0 % (0-1); CALCIUM 8.5 mg/dL (8.5-10.1); CHLORIDE 103 mmol/L (98-107); CREATININE 1.19 mg/dL (0.7-1.3); EOSINOPHILS # (AUTO) 0.16 x10^3/uL (0-0.4); EOSINOPHILS % (AUTO) 2 % (1-7); LYMPHOCYTES # (AUTO) 0.76 x10^3/uL (1-3.4); LYMPHOCYTES % (AUTO) 10 % (22-44); MD NO; MEAN CORPUSCULAR HEMOGLOBIN 35.5 pg (27.5-34.5); MEAN CORPUSCULAR HGB CONC 33.6 g/dL (33.2-36.2); MEAN CORPUSCULAR VOLUME 105.7 fL (81-97); MONOCYTES # (AUTO) 0.81 x10^3/uL (0.2-0.8); MONOCYTES % (AUTO) 11 % (2-9); NEUTROPHILS # (AUTO) 5.51 x10^3/uL (1.8-6.8); NEUTROPHILS % (AUTO) 76 % (42-75); PLATELET COUNT 229 x10^3/uL (130-400); RED BLOOD COUNT 4.05 x10^6/uL (4.38-5.82); RED CELL DISTRIBUTION WIDTH 14.9 % (9.4-14.8)
[2018-01-06 12:10] LABS: INTERNATIONAL NORMALIZED RATIO 1.09 (0.93-1.1); PROTHROMBIN TIME 11.2 Seconds (9.6-11.5)
[2018-01-06 12:11] LABS: ALKALINE PHOSPHATASE 91 U/L (45-117); BILIRUBIN,TOTAL 0.6 mg/dL (0.2-1.0); TOTAL PROTEIN 6.6 g/dL (6.4-8.2); TROPONIN I < 0.015 ng/mL (0.000-0.045)
[2018-01-06] MEDS ORDERED: FUROSEMIDE 20 MG/2 ML IV ONE (13:30)
[2018-01-06] MEDS ORDERED: FUROSEMIDE 20 MG/2 ML ONE (13:45)
[2018-01-06 14:42] VITALS: BP 126/70
[2018-01-06] MEDS ORDERED: ACETAMINOPHEN 325 MG TABLET PO PRN (16:00)
[2018-01-06] MEDS ORDERED: ALBUTEROL SULFATE 2.5 MG/3 ML NPPB PRN (16:30)
[2018-01-06] MEDS: ALBUTEROL/IPRATROPIUM 2.5MG/0.5MG, 3 ML NPPB SCH ×2 (18:00→22:00)
[2018-01-06] MEDS: HEPARIN 5,000 UNITS/ML, 1ML SQ SCH (18:14)
[2018-01-06] MEDS ORDERED: ALBUTEROL/IPRATROPIUM 2.5MG/0.5MG, 3 ML NPPB SCH (19:00)
[2018-01-06 19:43] VITALS: BP 120/73
[2018-01-06] MEDS: METOPROLOL TARTRATE 25 MG TABLET PO SCH (20:23)
[2018-01-06] MEDS: LOSARTAN 25MG TABLET PO SCH (20:23)
[2018-01-06] MEDS ORDERED: TIMOLOL MALEATE RIGHTEYE SCH (21:00)
[2018-01-07] MEDS: HEPARIN 5,000 UNITS/ML, 1ML SQ SCH ×3 (01:03→16:00)
[2018-01-07 01:15] VITALS: BP 184/97
[2018-01-07] MEDS: ENALAPRILAT 1.25 MG/ML, 2ML IVPush PRN (01:20)
[2018-01-07 02:21] VITALS: BP 147/78
[2018-01-07 05:13] LABS: BASOPHILS # (AUTO) 0.04 x10^3/uL (0-0.1); BASOPHILS % (AUTO) 1 % (0-1); EOSINOPHILS % (AUTO) 3 % (1-7); LYMPHOCYTES # (AUTO) 0.74 x10^3/uL (1-3.4); LYMPHOCYTES % (AUTO) 11 % (22-44); MD NO; MEAN CORPUSCULAR HEMOGLOBIN 35.7 pg (27.5-34.5); MEAN CORPUSCULAR HGB CONC 33.7 g/dL (33.2-36.2); MEAN CORPUSCULAR VOLUME 105.7 fL (81-97); MEAN PLATELET VOLUME 7.8 fL (7.4-10.4); MONOCYTES # (AUTO) 0.58 x10^3/uL (0.2-0.8); MONOCYTES % (AUTO) 9 % (2-9); NEUTROPHILS # (AUTO) 5.31 x10^3/uL (1.8-6.8); NEUTROPHILS % (AUTO) 77 % (42-75); PLATELET COUNT 218 x10^3/uL (130-400); RED BLOOD COUNT 3.95 x10^6/uL (4.38-5.82); RED CELL DISTRIBUTION WIDTH 14.6 % (9.4-14.8)
[2018-01-07 05:26] LABS: ANION GAP 9 mmol/L (5-15); CALCIUM 8.4 mg/dL (8.5-10.1); CHLORIDE 104 mmol/L (98-107)
[2018-01-07] MEDS: ALBUTEROL/IPRATROPIUM 2.5MG/0.5MG, 3 ML NPPB SCH ×5 (06:00→22:00)
[2018-01-07] MEDS ORDERED: FUROSEMIDE 20 MG TABLET PO SCH (09:00)
[2018-01-07] MEDS ORDERED: LATANOPROST OPHTH 0.005%, 2.5ML RIGHTEYE SCH (09:00)
[2018-01-07] MEDS: FUROSEMIDE 20 MG/2 ML IV SCH (09:12)
[2018-01-07] MEDS: ASPIRIN 81 MG TABLET EC PO SCH (09:13)
[2018-01-07] MEDS: LOSARTAN 25MG TABLET PO SCH ×2 (09:13→21:25)
[2018-01-07] MEDS: CHOLECALCIFEROL 5,000u TAB PO SCH (09:14)
[2018-01-07] MEDS: METOPROLOL TARTRATE 25 MG TABLET PO SCH ×2 (09:14→21:25)
[2018-01-07] MEDS: FLUTICASONE/VILANTEROL 100-25MCG/INH INH SCH (09:15)
[2018-01-07] MEDS ORDERED: TIMO5DRO33 OP (11:44)
[2018-01-07] MEDS: TIMOLOL OPHTH 0.5%, 5ML RIGHTEYE SCH (13:37)
[2018-01-07 15:08] VITALS: BP 124/72
[2018-01-07 19:30] VITALS: BP 95/58
[2018-01-07 21:22] VITALS: BP 113/82
[2018-01-07] MEDS: LATANOPROST OPHTH 0.005%, 2.5ML RIGHTEYE SCH (21:24)
[2018-01-08] VITALS (7 sets, daily range): BP systolic 124–184; BP diastolic 75–110
[2018-01-08] MEDS ORDERED: DIPHENHYDRAMINE 50 MG CAPSULE PO ONE (02:00)
[2018-01-08 05:05] LABS: ANION GAP 6 mmol/L (5-15); CALCIUM 8.2 mg/dL (8.5-10.1); CHLORIDE 106 mmol/L (98-107)
[2018-01-08 05:12] LABS: CREATININE 1.25 mg/dL (0.7-1.3)
[2018-01-08] MEDS: ALBUTEROL/IPRATROPIUM 2.5MG/0.5MG, 3 ML NPPB SCH ×5 (06:36→22:00)
[2018-01-08] MEDS: HEPARIN 5,000 UNITS/ML, 1ML SQ SCH ×2 (08:00)
[2018-01-08] MEDS: TIMOLOL OPHTH 0.5%, 5ML RIGHTEYE SCH (08:48)
[2018-01-08] MEDS ORDERED: FENTANYL PF 100 MCG/2ML ONE (09:07)
[2018-01-08] MEDS ORDERED: MIDAZOLAM 1 MG/ML, 5ML ONE (09:07)
[2018-01-08] MEDS ORDERED: ALBUTEROL SULFATE 2.5 MG/3 ML ONE (10:39)
[2018-01-08] MEDS: FUROSEMIDE 20 MG/2 ML IV SCH ×2 (11:38→18:19)
[2018-01-08] MEDS: FLUTICASONE/VILANTEROL 100-25MCG/INH INH SCH (11:39)
[2018-01-08] MEDS: CHOLECALCIFEROL 5,000u TAB PO SCH (13:21)
[2018-01-08] MEDS: METOPROLOL TARTRATE 25 MG TABLET PO SCH ×2 (13:21→20:18)
[2018-01-08] MEDS: LOSARTAN 25MG TABLET PO SCH ×2 (13:22→20:18)
[2018-01-08] MEDS: PIPERACILLIN/TAZO/PMX 3.375GM 50 ML IV SCH ×2 (13:31→20:18)
[2018-01-08] MEDS: LACTOBACILLUS 1GM/ PACKET PO SCH ×3 (13:32→20:18)
[2018-01-08] MEDS: ASPIRIN 81 MG TABLET EC PO SCH (13:33)
[2018-01-08] MEDS: ENALAPRILAT 1.25 MG/ML, 2ML IVPush PRN (14:51)
[2018-01-08] MEDS ORDERED: LIDOCAINE 4% TOPICAL SOLUTION 50 ML ONE (14:55)
[2018-01-08] MEDS ORDERED: EPINEPHRINE SYRINGE 0.1 MG/ML, 10ML ONE (14:55)
[2018-01-08] MEDS ORDERED: LIDOCAINE GEL 2%, 5ML ONE (14:55)
[2018-01-08] MEDS ORDERED: FUROSEMIDE 20 MG/2 ML ONE (15:39)
[2018-01-08] MEDS ORDERED: VERAPAMIL 2.5 MG/ML, 2ML ONE (15:45)
[2018-01-08] MEDS ORDERED: FUROSEMIDE 20 MG/2 ML IV ONE (16:00)
[2018-01-08] MEDS ORDERED: VERAPAMIL 2.5 MG/ML, 2ML IVPush PRN (16:00)
[2018-01-08] MEDS: LATANOPROST OPHTH 0.005%, 2.5ML RIGHTEYE SCH (20:19)
[2018-01-08] MEDS: DIPHENHYDRAMINE 50 MG CAPSULE PO PRN (21:56)
[2018-01-09] MEDS: PIPERACILLIN/TAZO/PMX 3.375GM 50 ML IV SCH ×4 (00:15→20:02)
[2018-01-09 01:03] VITALS: BP 108/74
[2018-01-09 04:57] LABS: BASOPHILS % (AUTO) 0 % (0-1); EOSINOPHILS % (AUTO) 0 % (1-7); LYMPHOCYTES # (AUTO) 0.47 x10^3/uL (1-3.4); LYMPHOCYTES % (AUTO) 3 % (22-44); MD NO; MEAN CORPUSCULAR HEMOGLOBIN 35.2 pg (27.5-34.5); MEAN CORPUSCULAR HGB CONC 33.5 g/dL (33.2-36.2); MEAN PLATELET VOLUME 7.8 fL (7.4-10.4); MONOCYTES # (AUTO) 0.94 x10^3/uL (0.2-0.8); MONOCYTES % (AUTO) 6 % (2-9); NEUTROPHILS # (AUTO) 13.87 x10^3/uL (1.8-6.8); NEUTROPHILS % (AUTO) 91 % (42-75); PLATELET COUNT 211 x10^3/uL (130-400); RED BLOOD COUNT 4.18 x10^6/uL (4.38-5.82); RED CELL DISTRIBUTION WIDTH 14.8 % (9.4-14.8)
[2018-01-09 04:58] LABS: ANION GAP 10 mmol/L (5-15); CALCIUM 8.6 mg/dL (8.5-10.1); CHLORIDE 106 mmol/L (98-107)
[2018-01-09 04:59] LABS: CREATININE 1.43 mg/dL (0.7-1.3)
[2018-01-09] MEDS: FUROSEMIDE 20 MG/2 ML IV SCH (05:24)
[2018-01-09] MEDS ORDERED: MAGNESIUM SULFATE PMX 2GM/50ML 50 ML IV ONE (07:00)
[2018-01-09] MEDS: ALBUTEROL/IPRATROPIUM 2.5MG/0.5MG, 3 ML NPPB SCH ×5 (07:25→23:11)
[2018-01-09 07:38] VITALS: BP 109/72
[2018-01-09] MEDS: FLUTICASONE/VILANTEROL 100-25MCG/INH INH SCH (08:12)
[2018-01-09] MEDS: TIMOLOL OPHTH 0.5%, 5ML RIGHTEYE SCH (08:12)
[2018-01-09] MEDS: CHOLECALCIFEROL 5,000u TAB PO SCH (08:13)
[2018-01-09] MEDS: METOPROLOL TARTRATE 25 MG TABLET PO SCH ×2 (08:14→20:03)
[2018-01-09] MEDS: LACTOBACILLUS 1GM/ PACKET PO SCH ×3 (08:14→20:03)
[2018-01-09] MEDS: LOSARTAN 25MG TABLET PO SCH ×2 (08:14→20:03)
[2018-01-09] MEDS: ASPIRIN 81 MG TABLET EC PO SCH (08:15)
[2018-01-09] MEDS ORDERED: FUROSEMIDE 20 MG/2 ML IV SCH (09:00)
[2018-01-09] MEDS ORDERED: FUROSEMIDE 10 MG/ML ORAL SOL PO SCH (09:00)
[2018-01-09] MEDS ORDERED: MAGNESIUM SULFATE 3 GM in SODIUM CHLORIDE 0.9% 100 ML IV ONE (09:00)
[2018-01-09 14:27] VITALS: BP 104/64
[2018-01-09 18:43] VITALS: BP 107/65
[2018-01-09] MEDS: LATANOPROST OPHTH 0.005%, 2.5ML RIGHTEYE SCH (20:05)
[2018-01-09] MEDS: DIPHENHYDRAMINE 50 MG CAPSULE PO PRN (21:47)
[2018-01-10] MEDS: PIPERACILLIN/TAZO/PMX 3.375GM 50 ML IV SCH ×4 (01:41→19:38)
[2018-01-10 02:07] VITALS: BP 134/77
[2018-01-10 05:38] LABS: BASOPHILS # (AUTO) 0.01 x10^3/uL (0-0.1); BASOPHILS % (AUTO) 0 % (0-1); EOSINOPHILS # (AUTO) 0.01 x10^3/uL (0-0.4); EOSINOPHILS % (AUTO) 0 % (1-7); LYMPHOCYTES # (AUTO) 0.63 x10^3/uL (1-3.4); LYMPHOCYTES % (AUTO) 4 % (22-44); MD NO; MEAN CORPUSCULAR HEMOGLOBIN 35.4 pg (27.5-34.5); MEAN CORPUSCULAR HGB CONC 33.3 g/dL (33.2-36.2); MEAN CORPUSCULAR VOLUME 106.3 fL (81-97); MEAN PLATELET VOLUME 8.1 fL (7.4-10.4); MONOCYTES # (AUTO) 1.08 x10^3/uL (0.2-0.8); MONOCYTES % (AUTO) 8 % (2-9); NEUTROPHILS # (AUTO) 12.53 x10^3/uL (1.8-6.8); NEUTROPHILS % (AUTO) 88 % (42-75); PLATELET COUNT 209 x10^3/uL (130-400); RED BLOOD COUNT 3.95 x10^6/uL (4.38-5.82)
[2018-01-10 05:44] LABS: ANION GAP 9 mmol/L (5-15); CHLORIDE 108 mmol/L (98-107)
[2018-01-10 05:50] LABS: CREATININE 1.97 mg/dL (0.7-1.3)
[2018-01-10] MEDS: SODIUM CHLORIDE 0.9% 500 ML IV SCH ×2 (06:29→15:54)
[2018-01-10] MEDS: ALBUTEROL/IPRATROPIUM 2.5MG/0.5MG, 3 ML NPPB SCH (07:15)
[2018-01-10] MEDS: FLUTICASONE/VILANTEROL 100-25MCG/INH INH SCH (07:56)
[2018-01-10] MEDS: CHOLECALCIFEROL 5,000u TAB PO SCH (07:56)
[2018-01-10] MEDS: TIMOLOL OPHTH 0.5%, 5ML RIGHTEYE SCH (07:57)
[2018-01-10] MEDS: LACTOBACILLUS 1GM/ PACKET PO SCH ×3 (07:57→19:39)
[2018-01-10] MEDS: METOPROLOL TARTRATE 25 MG TABLET PO SCH ×2 (07:57→19:38)
[2018-01-10] MEDS: ASPIRIN 81 MG TABLET EC PO SCH (07:57)
[2018-01-10] MEDS: LOSARTAN 25MG TABLET PO SCH ×2 (07:57→19:38)
[2018-01-10 08:21] VITALS: BP 152/83
[2018-01-10] MEDS ORDERED: FUROSEMIDE 20 MG TABLET PO SCH (09:00)
[2018-01-10 13:59] VITALS: BP 110/71
[2018-01-10 19:11] VITALS: BP 137/89
[2018-01-10] MEDS: LATANOPROST OPHTH 0.005%, 2.5ML RIGHTEYE SCH (19:39)
[2018-01-10] MEDS: DIPHENHYDRAMINE 50 MG CAPSULE PO PRN (21:42)
[2018-01-11] VITALS (7 sets, daily range): BP systolic 148–172; BP diastolic 81–112
[2018-01-11] MEDS: SODIUM CHLORIDE 0.9% 500 ML IV SCH ×2 (02:25→13:06)
[2018-01-11] MEDS: PIPERACILLIN/TAZO/PMX 3.375GM 50 ML IV SCH ×4 (02:25→21:32)
[2018-01-11 05:08] LABS: BASOPHILS % (AUTO) 0 % (0-1); EOSINOPHILS # (AUTO) 0.01 x10^3/uL (0-0.4); EOSINOPHILS % (AUTO) 0 % (1-7); LYMPHOCYTES # (AUTO) 0.61 x10^3/uL (1-3.4); LYMPHOCYTES % (AUTO) 5 % (22-44); MD NO; MEAN CORPUSCULAR HEMOGLOBIN 35.8 pg (27.5-34.5); MEAN CORPUSCULAR HGB CONC 33.9 g/dL (33.2-36.2); MEAN CORPUSCULAR VOLUME 105.7 fL (81-97); MEAN PLATELET VOLUME 7.9 fL (7.4-10.4); MONOCYTES # (AUTO) 0.83 x10^3/uL (0.2-0.8); MONOCYTES % (AUTO) 7 % (2-9); NEUTROPHILS # (AUTO) 10.05 x10^3/uL (1.8-6.8); NEUTROPHILS % (AUTO) 87 % (42-75); PLATELET COUNT 228 x10^3/uL (130-400); RED BLOOD COUNT 3.82 x10^6/uL (4.38-5.82); RED CELL DISTRIBUTION WIDTH 15.4 % (9.4-14.8)
[2018-01-11 05:19] LABS: ANION GAP 9 mmol/L (5-15); CALCIUM 8.7 mg/dL (8.5-10.1); CHLORIDE 109 mmol/L (98-107)
[2018-01-11 05:22] LABS: CREATININE 1.54 mg/dL (0.7-1.3)
[2018-01-11] MEDS: ASPIRIN 81 MG TABLET EC PO SCH (09:07)
[2018-01-11] MEDS: CHOLECALCIFEROL 5,000u TAB PO SCH (09:07)
[2018-01-11] MEDS: LACTOBACILLUS 1GM/ PACKET PO SCH ×3 (09:07→21:25)
[2018-01-11] MEDS: METOPROLOL TARTRATE 25 MG TABLET PO SCH ×2 (09:07→21:26)
[2018-01-11] MEDS: LOSARTAN 25MG TABLET PO SCH ×2 (09:08→21:25)
[2018-01-11] MEDS: FLUTICASONE/VILANTEROL 100-25MCG/INH INH SCH (09:09)
[2018-01-11] MEDS: TIMOLOL OPHTH 0.5%, 5ML RIGHTEYE SCH (09:09)
[2018-01-11] MEDS: BENZONATATE 100 MG CAPSULE PO SCH (21:25)
[2018-01-11] MEDS: LATANOPROST OPHTH 0.005%, 2.5ML RIGHTEYE SCH (21:32)
[2018-01-11] MEDS: ENALAPRILAT 1.25 MG/ML, 2ML IVPush PRN (21:48)
[2018-01-11] MEDS: DIPHENHYDRAMINE 50 MG CAPSULE PO PRN (22:54)
[2018-01-12] VITALS (7 sets, daily range): BP systolic 155–179; BP diastolic 75–93
[2018-01-12] MEDS: PIPERACILLIN/TAZO/PMX 3.375GM 50 ML IV SCH ×4 (03:22→22:39)
[2018-01-12 06:09] LABS: ANION GAP 5 mmol/L (5-15); CALCIUM 8.8 mg/dL (8.5-10.1); CHLORIDE 110 mmol/L (98-107)
[2018-01-12] MEDS: LACTOBACILLUS 1GM/ PACKET PO SCH ×3 (08:38→21:04)
[2018-01-12] MEDS: BENZONATATE 100 MG CAPSULE PO SCH ×3 (08:38→21:05)
[2018-01-12] MEDS: METOPROLOL TARTRATE 25 MG TABLET PO SCH ×2 (08:40→21:05)
[2018-01-12] MEDS: LOSARTAN 25MG TABLET PO SCH (08:40)
[2018-01-12] MEDS: CHOLECALCIFEROL 5,000u TAB PO SCH (08:40)
[2018-01-12] MEDS: FLUTICASONE/VILANTEROL 100-25MCG/INH INH SCH (08:40)
[2018-01-12] MEDS: ASPIRIN 81 MG TABLET EC PO SCH (08:40)
[2018-01-12] MEDS: TIMOLOL OPHTH 0.5%, 5ML RIGHTEYE SCH (08:41)
[2018-01-12] MEDS ORDERED: LOSARTAN 25MG TABLET PO ONE (10:00)
[2018-01-12] MEDS: LOSARTAN 50MG TABLET PO SCH (21:05)
[2018-01-12] MEDS: LATANOPROST OPHTH 0.005%, 2.5ML RIGHTEYE SCH (21:06)
[2018-01-13] VITALS (18 sets, daily range): BP systolic 130–195; BP diastolic 80–114
[2018-01-13] MEDS: ENALAPRILAT 1.25 MG/ML, 2ML IVPush PRN ×2 (02:25→03:04)
[2018-01-13] MEDS: PIPERACILLIN/TAZO/PMX 3.375GM 50 ML IV SCH ×2 (03:54→11:01)
[2018-01-13] MEDS ORDERED: hydrALAzine 20 MG/ML, 1ML IV ONE (05:00)
[2018-01-13] MEDS: FLUTICASONE/VILANTEROL 100-25MCG/INH INH SCH (09:22)
[2018-01-13] MEDS: TIMOLOL OPHTH 0.5%, 5ML RIGHTEYE SCH (09:23)
[2018-01-13] MEDS: METOPROLOL TARTRATE 25 MG TABLET PO SCH (09:24)
[2018-01-13] MEDS: ASPIRIN 81 MG TABLET EC PO SCH (09:24)
[2018-01-13] MEDS: CHOLECALCIFEROL 5,000u TAB PO SCH (09:24)
[2018-01-13] MEDS: LOSARTAN 50MG TABLET PO SCH (09:25)
[2018-01-13] MEDS: LACTOBACILLUS 1GM/ PACKET PO SCH (09:25)
[2018-01-13] MEDS: BENZONATATE 100 MG CAPSULE PO SCH (09:25)
[2018-01-13] MEDS ORDERED: FUROSEMIDE 40 MG/4 ML IV ONE (11:30)
[2018-01-13] MEDS ORDERED: LOSA50TA2 PO (12:43)
[2018-01-13] MEDS ORDERED: AMOX1TAB12 PO (12:43)
[2018-01-13] MEDS ORDERED: PRED20TA PO (12:43)
[2018-01-13] MEDS ORDERED: AMOXICILLIN/CLAV 875-125MG TABLET PO SCH (21:00)
== END 2018-01-13 15:39 | disposition home health service (06) | DRG 166 ==
LOC: ED 12:50 → 5SO 13:36
PROVIDERS: ADMIT Family Medicine; ATTEND Family Medicine
PROC: 0B9D8ZX Drainage of Right Middle Lung Lobe, Via Natural or Artificial Opening Endoscopic, Diagnostic (ICD-10-PCS; 2018-01-08)
PROC: 3E0F8GC Introduction of Other Therapeutic Substance into Respiratory Tract, Via Natural or Artificial Opening Endoscopic (ICD-10-PCS; 2018-01-08)
PROC: 5A09357 Assistance with Respiratory Ventilation, Less than 24 Consecutive Hours, Continuous Positive Airway Pressure (ICD-10-PCS; 2018-01-08)
PROC: 0BBD8ZX Excision of Right Middle Lung Lobe, Via Natural or Artificial Opening Endoscopic, Diagnostic (ICD-10-PCS; principal; 2018-01-08 10:05)
PROC: 5A09357 Assistance with Respiratory Ventilation, Less than 24 Consecutive Hours, Continuous Positive Airway Pressure (ICD-10-PCS; 2018-01-09)
PROC: 5A09357 Assistance with Respiratory Ventilation, Less than 24 Consecutive Hours, Continuous Positive Airway Pressure (ICD-10-PCS; 2018-01-11)
PROC: 5A09357 Assistance with Respiratory Ventilation, Less than 24 Consecutive Hours, Continuous Positive Airway Pressure (ICD-10-PCS; 2018-01-12)
DX: J18.9 Pneumonia, unspecified organism (principal); I50.43 Acute on chronic combined systolic (congestive) and diastolic (congestive) heart failure; J96.21 Acute and chronic respiratory failure with hypoxia; N17.0 Acute kidney failure with tubular necrosis; D68.69 Other thrombophilia; C34.12 Malignant neoplasm of upper lobe, left bronchus or lung; I13.0 Hypertensive heart and chronic kidney disease with heart failure and stage 1 through stage 4 chronic kidney disease, or unspecified chronic kidney disease; J44.0 Chronic obstructive pulmonary disease with (acute) lower respiratory infection; R04.2 Hemoptysis; J44.1 Chronic obstructive pulmonary disease with (acute) exacerbation; I47.2 Ventricular tachycardia; G47.33 Obstructive sleep apnea (adult) (pediatric); H91.90 Unspecified hearing loss, unspecified ear; I27.20 Pulmonary hypertension, unspecified; I48.2 Chronic atrial fibrillation; I70.0 Atherosclerosis of aorta; E11.22 Type 2 diabetes mellitus with diabetic chronic kidney disease; R91.8 Other nonspecific abnormal finding of lung field; M85.80 Other specified disorders of bone density and structure, unspecified site; N18.3 Chronic kidney disease, stage 3 (moderate); N28.1 Cyst of kidney, acquired; Z80.3 Family history of malignant neoplasm of breast; N40.0 Benign prostatic hyperplasia without lower urinary tract symptoms; Z66 Do not resuscitate; Z85.118 Personal history of other malignant neoplasm of bronchus and lung; Z87.891 Personal history of nicotine dependence; Z92.21 Personal history of antineoplastic chemotherapy; Z92.3 Personal history of irradiation; Z97.0 Presence of artificial eye; Z90.49 Acquired absence of other specified parts of digestive tract; Z88.8 Allergy status to other drugs, medicaments and biological substances
CPT/HCPCS: 31623; 31624; 31625; 36415; 36600; 71045; 71046; 71250; 80048; 80053; 82803; 83735; 83880; 84484; 85025; 85610; 85730; 87015; 87070; 87102; 87116; 87205; 87206; 88104; 88108; 88112; 88305; 90656; 93005; 93306; 93970; 94640; 99152; 99153; 99285; G0378; J1644; J1940; J2250; J2543; J3010; J3475; J7613; J7620; J0360; J7040; J7512

== ENCOUNTER 2018-02-13 15:05 | Inpatient (IN) | payer MEDICARE ==
[2018-02-12] MEDS: ALBUTEROL/IPRATROPIUM 2.5MG/0.5MG, 3 ML NPPB SCH (10:44)
[~2018-02-13] VITALS: Ht 190.5 cm; Wt 100.1 kg
[~2018-02-13 15:05] MED LIST changes: +AMOX1TAB12 PO; +LOSA50TA2 PO; +PRED20TA PO; +TIMO5DRO33 OP
[2018-02-13] MEDS ORDERED: SODIUM CHLORIDE FLUSH 10ML SYR IVF ONE (15:30)
[2018-02-13 15:49] LABS: BASOPHILS # (AUTO) 0.03 x10^3/uL (0-0.1); BASOPHILS % (AUTO) 0 % (0-1); EOSINOPHILS # (AUTO) 0.24 x10^3/uL (0-0.4); EOSINOPHILS % (AUTO) 3 % (1-7); LYMPHOCYTES # (AUTO) 0.76 x10^3/uL (1-3.4); LYMPHOCYTES % (AUTO) 11 % (22-44); MD NO; MEAN CORPUSCULAR HEMOGLOBIN 35.1 pg (27.5-34.5); MEAN CORPUSCULAR HGB CONC 34.3 g/dL (33.2-36.2); MEAN CORPUSCULAR VOLUME 102.3 fL (81-97); MEAN PLATELET VOLUME 7.1 fL (7.4-10.4); MONOCYTES # (AUTO) 0.87 x10^3/uL (0.2-0.8); MONOCYTES % (AUTO) 12 % (2-9); NEUTROPHILS # (AUTO) 5.17 x10^3/uL (1.8-6.8); NEUTROPHILS % (AUTO) 73 % (42-75); PLATELET COUNT 261 x10^3/uL (130-400); RED BLOOD COUNT 3.89 x10^6/uL (4.38-5.82); RED CELL DISTRIBUTION WIDTH 14.1 % (9.4-14.8)
[2018-02-13 16:04] LABS: ALANINE AMINOTRANSFERASE 29 U/L (12-78); ALBUMIN 2.8 g/dL (3.4-5.0); ANION GAP 8 mmol/L (5-15); CALCIUM 8.4 mg/dL (8.5-10.1); CHLORIDE 102 mmol/L (98-107); CREATININE 1.48 mg/dL (0.7-1.3)
[2018-02-13 16:08] LABS: ALKALINE PHOSPHATASE 92 U/L (45-117); BILIRUBIN,TOTAL 0.5 mg/dL (0.2-1.0); TOTAL PROTEIN 6.4 g/dL (6.4-8.2); TROPONIN I < 0.015 ng/mL (0.000-0.045)
[2018-02-13 16:52] LABS: CULTURE INDICATED? NO; MICROSCOPIC AUTO
[2018-02-13] MEDS ORDERED: ASPIRIN 81 MG TABLET CHEW ONE (18:24)
[2018-02-13] MEDS ORDERED: ASPIRIN 81 MG TABLET CHEW PO ONE (18:30)
[2018-02-13] MEDS ORDERED: POLYETHYLENE GLYCOL 17 GM PACKET PO PRN (19:00)
[2018-02-13] MEDS ORDERED: ACETAMINOPHEN 325 MG TABLET PO PRN (19:00)
[2018-02-13] MEDS ORDERED: BISACODYL 10 MG SUPP PR PRN (19:00)
[2018-02-13] MEDS ORDERED: SODIUM CHLORIDE 0.9% 1,000 ML IV SCH (19:00)
[2018-02-13] MEDS ORDERED: DOCUSATE 100 MG CAPSULE PO PRN (19:00)
[2018-02-13] MEDS ORDERED: LABETALOL 5MG/ML, 20ML IVPush PRN (19:00)
[2018-02-13] MEDS ORDERED: ONDANSETRON ODT 4 MG PO PRN (19:00)
[2018-02-13 19:30] VITALS: BP 122/78
[2018-02-13 21:38] VITALS: BP 113/74
[2018-02-13] MEDS: HEPARIN 5,000 UNITS/ML, 1ML SQ SCH (21:42)
[2018-02-13] MEDS: LATANOPROST OPHTH 0.005%, 2.5ML RIGHTEYE SCH (21:42)
[2018-02-13] MEDS: LOSARTAN 25MG TABLET PO SCH (21:42)
[2018-02-13] MEDS: METOPROLOL TARTRATE 25 MG TABLET PO SCH (21:43)
[2018-02-13] MEDS ORDERED: ALBUTEROL/IPRATROPIUM 2.5MG/0.5MG, 3 ML NPPB PRN (22:30)
[2018-02-13] MEDS ORDERED: LOSA25TA6 PO (23:48)
[2018-02-14] VITALS (7 sets, daily range): BP systolic 104–122; BP diastolic 63–75
[2018-02-14] MEDS: HEPARIN 5,000 UNITS/ML, 1ML SQ SCH ×3 (03:30→20:40)
[2018-02-14 04:39] LABS: BASOPHILS # (AUTO) 0.05 x10^3/uL (0-0.1); BASOPHILS % (AUTO) 1 % (0-1); EOSINOPHILS # (AUTO) 0.24 x10^3/uL (0-0.4); EOSINOPHILS % (AUTO) 4 % (1-7); LYMPHOCYTES % (AUTO) 11 % (22-44); MD NO; MEAN CORPUSCULAR HEMOGLOBIN 34.8 pg (27.5-34.5); MEAN CORPUSCULAR HGB CONC 33.8 g/dL (33.2-36.2); MEAN CORPUSCULAR VOLUME 102.9 fL (81-97); MEAN PLATELET VOLUME 7.5 fL (7.4-10.4); MONOCYTES # (AUTO) 0.82 x10^3/uL (0.2-0.8); MONOCYTES % (AUTO) 13 % (2-9); NEUTROPHILS % (AUTO) 71 % (42-75); PLATELET COUNT 245 x10^3/uL (130-400); RED BLOOD COUNT 3.52 x10^6/uL (4.38-5.82); RED CELL DISTRIBUTION WIDTH 14.4 % (9.4-14.8)
[2018-02-14 04:47] LABS: CHLORIDE 107 mmol/L (98-107)
[2018-02-14 04:54] LABS: ALANINE AMINOTRANSFERASE 26 U/L (12-78); ALBUMIN 2.5 g/dL (3.4-5.0); ALKALINE PHOSPHATASE 76 U/L (45-117); ANION GAP 7 mmol/L (5-15); BILIRUBIN,TOTAL 0.5 mg/dL (0.2-1.0); CALCIUM 7.8 mg/dL (8.5-10.1); CREATININE 1.38 mg/dL (0.7-1.3); TOTAL PROTEIN 5.7 g/dL (6.4-8.2)
[2018-02-14] MEDS: ALBUTEROL/IPRATROPIUM 2.5MG/0.5MG, 3 ML NPPB SCH ×3 (07:25→19:27)
[2018-02-14] MEDS: ALBUTEROL SULFATE 2.5 MG/3 ML HHN SCH ×2 (07:25→10:38)
[2018-02-14] MEDS: LOSARTAN 25MG TABLET PO SCH ×2 (09:00→20:40)
[2018-02-14] MEDS ORDERED: LATANOPROST OPHTH 0.005%, 2.5ML RIGHTEYE SCH (09:00)
[2018-02-14] MEDS ORDERED: FLUTICASONE/VILANTEROL 100-25MCG/INH INH SCH (09:00)
[2018-02-14] MEDS ORDERED: FUROSEMIDE 20 MG TABLET PO SCH (09:00)
[2018-02-14] MEDS: METOPROLOL TARTRATE 25 MG TABLET PO SCH ×2 (09:28→20:40)
[2018-02-14] MEDS: TIMOLOL OPHTH 0.5%, 5ML OP SCH (09:29)
[2018-02-14] MEDS: BUDESONIDE 0.5 MG/2 ML INHA NPPB SCH ×2 (10:38→19:27)
[2018-02-14] MEDS ORDERED: SODIUM CHLORIDE 0.9% 1,000 ML IV SCH (19:00)
[2018-02-14] MEDS: LATANOPROST OPHTH 0.005%, 2.5ML RIGHTEYE SCH (20:40)
[2018-02-15 01:44] VITALS: BP 109/67
[2018-02-15] MEDS: HEPARIN 5,000 UNITS/ML, 1ML SQ SCH ×3 (03:30→19:51)
[2018-02-15 05:16] LABS: ANION GAP 9 mmol/L (5-15); CALCIUM 8.5 mg/dL (8.5-10.1); CHLORIDE 108 mmol/L (98-107); CREATININE 1.11 mg/dL (0.7-1.3)
[2018-02-15] MEDS: ALBUTEROL/IPRATROPIUM 2.5MG/0.5MG, 3 ML NPPB SCH ×4 (07:47→20:10)
[2018-02-15] MEDS: BUDESONIDE 0.5 MG/2 ML INHA NPPB SCH ×2 (07:47→20:28)
[2018-02-15 07:49] VITALS: BP 135/76
[2018-02-15] MEDS: METOPROLOL TARTRATE 25 MG TABLET PO SCH ×2 (08:49→20:18)
[2018-02-15] MEDS: LOSARTAN 25MG TABLET PO SCH ×2 (08:49→20:18)
[2018-02-15] MEDS: TIMOLOL OPHTH 0.5%, 5ML OP SCH (08:50)
[2018-02-15 15:02] VITALS: BP 115/72
[2018-02-15 19:50] VITALS: BP 120/74
[2018-02-15] MEDS: LATANOPROST OPHTH 0.005%, 2.5ML RIGHTEYE SCH (20:18)
[2018-02-16 01:49] VITALS: BP 131/72
[2018-02-16] MEDS: HEPARIN 5,000 UNITS/ML, 1ML SQ SCH ×2 (03:30→11:00)
[2018-02-16] MEDS: ALBUTEROL/IPRATROPIUM 2.5MG/0.5MG, 3 ML NPPB SCH ×2 (07:00→10:10)
[2018-02-16] MEDS: BUDESONIDE 0.5 MG/2 ML INHA NPPB SCH (07:06)
[2018-02-16 07:19] VITALS: BP 142/76
[2018-02-16] MEDS: TIMOLOL OPHTH 0.5%, 5ML OP SCH (08:52)
[2018-02-16] MEDS: LOSARTAN 25MG TABLET PO SCH (08:52)
[2018-02-16] MEDS: METOPROLOL TARTRATE 25 MG TABLET PO SCH (08:52)
[2018-02-16] MEDS ORDERED: BUDE0.5A NPPB (11:43)
[2018-02-16] MEDS ORDERED: PRED20TA PO (11:43)
[2018-02-16 13:03] VITALS: BP 132/84
== END 2018-02-16 14:47 | disposition home or self-care (01) | DRG 682 ==
LOC: ED 17:16 → EDIP 17:31 → 5SO 19:20
PROVIDERS: ADMIT Family Medicine; ATTEND Family Medicine
DX: N17.9 Acute kidney failure, unspecified (principal); J96.21 Acute and chronic respiratory failure with hypoxia; J44.1 Chronic obstructive pulmonary disease with (acute) exacerbation; E87.1 Hypo-osmolality and hyponatremia; I13.0 Hypertensive heart and chronic kidney disease with heart failure and stage 1 through stage 4 chronic kidney disease, or unspecified chronic kidney disease; I50.32 Chronic diastolic (congestive) heart failure; J70.0 Acute pulmonary manifestations due to radiation; Y84.2 Radiological procedure and radiotherapy as the cause of abnormal reaction of the patient, or of later complication, without mention of misadventure at the time of the procedure; G47.33 Obstructive sleep apnea (adult) (pediatric); Z87.891 Personal history of nicotine dependence; Z92.21 Personal history of antineoplastic chemotherapy; Z97.0 Presence of artificial eye; E11.22 Type 2 diabetes mellitus with diabetic chronic kidney disease; H91.90 Unspecified hearing loss, unspecified ear; I25.10 Atherosclerotic heart disease of native coronary artery without angina pectoris; I48.2 Chronic atrial fibrillation; I27.20 Pulmonary hypertension, unspecified; N40.0 Benign prostatic hyperplasia without lower urinary tract symptoms; Z80.3 Family history of malignant neoplasm of breast; Z85.118 Personal history of other malignant neoplasm of bronchus and lung; N18.3 Chronic kidney disease, stage 3 (moderate); Z92.3 Personal history of irradiation; Z99.81 Dependence on supplemental oxygen; I25.2 Old myocardial infarction; Z88.8 Allergy status to other drugs, medicaments and biological substances
CPT/HCPCS: 36415; 71045; 80048; 80053; 81001; 83880; 84484; 85025; 93005; 94640; 99285; G0378; J7613; J7620; J7626; J7030; J7512

== ENCOUNTER 2018-04-04 08:36 | Inpatient (IN) | payer MEDICARE ==
[~2018-04-04] VITALS: Ht 190.5 cm; Wt 99.1 kg
[~2018-04-04 08:36] MED LIST changes: -AMLO2.5T3 PO; +AMLO2.5T5 PO; +BUDE0.5A NPPB; +LOSA100T14 PO; -LOSA100T7 PO; +LOSA25TA25 PO; -LOSA25TA6 PO; +LOSA50TA14 PO; -LOSA50TA7 PO
--- NOTE | 2018-04-04 08:41 | NUR ---
PT BROUGHT IN BY EMS TODAY FOR SHORTNESS OF BREATH, COUGHING, WHEEZING, AND RHONCHI HEARD IN ALL LUNG JENNINGS BY EMS. PT STATES, "I HAVE HAD A COUGH FOR A REALLY LONG TIME. I HAVE A LONG HISTORY OF COPD AND LUNG CANCER." PT RECIEVED TWO BREATHING TREATMENTS FROM EMS. PT WAS 80% ON ROOM AIR WHEN EMS ARRIVED, AND WAS 99% ON 4L OF OXYGEN VIA NASAL CANNULA AFTER EMS GAVE BREATHING TREATMENTS. PT DENIES N/V/D, CP, OR TRAUMA. 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 PT STATES HE IS HARD OF HEARING AND PT HAS HEARING AIDS IN PLACE PRIOR TO ARRIVAL.
[2018-04-04] MEDS: ALBUTEROL/IPRATROPIUM 2.5MG/0.5MG, 3 ML NPPB SCH ×4 (08:55→21:45)
[2018-04-04] MEDS ORDERED: ALBUTEROL/IPRATROPIUM 2.5MG/0.5MG, 3 ML ONE (08:56)
[2018-04-04 09:23] LABS: RAPID INFLUENZA A Negative (Negative); RAPID INFLUENZA B Negative (Negative)
[2018-04-04] MEDS ORDERED: FLUT1AER INH (09:29)
[2018-04-04 09:33] LABS: BASOPHILS # (AUTO) 0.05 x10^3/uL (0-0.1); BASOPHILS % (AUTO) 1 % (0-1); EOSINOPHILS # (AUTO) 0.23 x10^3/uL (0-0.4); EOSINOPHILS % (AUTO) 3 % (1-7); LYMPHOCYTES # (AUTO) 0.84 x10^3/uL (1-3.4); LYMPHOCYTES % (AUTO) 11 % (22-44); MD NO; MEAN CORPUSCULAR HEMOGLOBIN 35.3 pg (27.5-34.5); MEAN CORPUSCULAR HGB CONC 33.2 g/dL (33.2-36.2); MEAN CORPUSCULAR VOLUME 106.3 fL (81-97); MEAN PLATELET VOLUME 7.2 fL (7.4-10.4); MONOCYTES # (AUTO) 0.63 x10^3/uL (0.2-0.8); MONOCYTES % (AUTO) 8 % (2-9); NEUTROPHILS # (AUTO) 5.69 x10^3/uL (1.8-6.8); NEUTROPHILS % (AUTO) 76 % (42-75); PLATELET COUNT 280 x10^3/uL (130-400); RED BLOOD COUNT 3.84 x10^6/uL (4.38-5.82)
--- NOTE | 2018-04-04 09:38 | NUR ---
Provided warm blanket and alison hugger blanket warmer to pt for comfort measures. NADN. No needs expressed at this time. Pt's at bedside. All safety measures in place. Pt has call light within reach. Provided urinal to pt per pt's request.
[2018-04-04 09:47] LABS: ALBUMIN 3.5 g/dL (3.4-5.0); ANION GAP 7 mmol/L (5-15); CALCIUM 8.8 mg/dL (8.5-10.1); CHLORIDE 107 mmol/L (98-107)
[2018-04-04 09:52] LABS: ALANINE AMINOTRANSFERASE 38 U/L (12-78); ALKALINE PHOSPHATASE 98 U/L (45-117); BILIRUBIN,TOTAL 0.8 mg/dL (0.2-1.0); CREATININE 1.27 mg/dL (0.7-1.3); TOTAL PROTEIN 6.8 g/dL (6.4-8.2); TROPONIN I < 0.015 ng/mL (0.000-0.045)
[2018-04-04] MEDS ORDERED: OMNIPAQUE 350 MG/ML, 100ML BOTTLE ONE (10:51)
[2018-04-04] MEDS ORDERED: FUROSEMIDE 40 MG/4 ML IV ONE (11:30)
[2018-04-04] MEDS ORDERED: FUROSEMIDE 40 MG/4 ML ONE (11:34)
--- NOTE | 2018-04-04 11:48 | NUR ---
Admitting provider at bedside. Provided medications per EMAR. JORDYN. Pt is hypertensive with bp at 163/101, and hr at 88. ED MD aware.
--- NOTE | 2018-04-04 12:09 | NUR ---
Provided report to NARA Nicholson. All questions answered. Pt ready to transfer to floor from ED.
[2018-04-04 12:36] LABS: INTERNATIONAL NORMALIZED RATIO 1.06 (0.93-1.1); PROTHROMBIN TIME 11.2 Seconds (9.6-11.5)
--- NOTE | 2018-04-04 12:42 | NUR ---
PT AMBULATES TO RESTROOM FROM [facility] WITH STEADY GAIT AND BALANCE. PT BACK TO [facility] AND RECONNECTED TO ALL MONITORS.
[2018-04-04 12:43] LABS: C-REACTIVE PROTEIN, QUANT 0.6 mg/dL (0.02-0.49)
--- NOTE | 2018-04-04 12:47 | NUR ---
Provided report to NARA Almanzar. All questions answered. Pt ready to transfer to floor at this time.
[2018-04-04 13:12] VITALS: BP 145/103
[2018-04-04 13:39] LABS: HCT (SEDRATE) 40.8 % (39.2-51.8)
[2018-04-04] MEDS ORDERED: ALBUTEROL/IPRATROPIUM 2.5MG/0.5MG, 3 ML NPPB PRN (14:00)
[2018-04-04] MEDS: METOPROLOL TARTRATE 25 MG TABLET PO SCH (17:12)
[2018-04-04 18:33] VITALS: BP 117/61
[2018-04-04] MEDS ORDERED: LOSARTAN 25MG TABLET PO SCH (21:00)
[2018-04-05 01:01] VITALS: BP 119/69
[2018-04-05] MEDS: METOPROLOL TARTRATE 25 MG TABLET PO SCH ×2 (05:49→17:08)
[2018-04-05 05:50] VITALS: BP 157/91
[2018-04-05 07:10] LABS: BASOPHILS # (AUTO) 0.01 x10^3/uL (0-0.1); BASOPHILS % (AUTO) 0 % (0-1); EOSINOPHILS # (AUTO) 0.01 x10^3/uL (0-0.4); EOSINOPHILS % (AUTO) 0 % (1-7); LYMPHOCYTES # (AUTO) 0.65 x10^3/uL (1-3.4); LYMPHOCYTES % (AUTO) 9 % (22-44); MD NO; MEAN CORPUSCULAR HEMOGLOBIN 35.1 pg (27.5-34.5); MEAN CORPUSCULAR VOLUME 106.3 fL (81-97); MEAN PLATELET VOLUME 7.3 fL (7.4-10.4); MONOCYTES # (AUTO) 0.73 x10^3/uL (0.2-0.8); MONOCYTES % (AUTO) 10 % (2-9); NEUTROPHILS # (AUTO) 5.79 x10^3/uL (1.8-6.8); NEUTROPHILS % (AUTO) 81 % (42-75); PLATELET COUNT 265 x10^3/uL (130-400); RED BLOOD COUNT 3.61 x10^6/uL (4.38-5.82); RED CELL DISTRIBUTION WIDTH 17.6 % (9.4-14.8)
[2018-04-05] MEDS: ALBUTEROL/IPRATROPIUM 2.5MG/0.5MG, 3 ML NPPB SCH (07:10)
[2018-04-05 07:20] LABS: ANION GAP 5 mmol/L (5-15); CALCIUM 8.2 mg/dL (8.5-10.1); CHLORIDE 109 mmol/L (98-107)
[2018-04-05] MEDS ORDERED: HEPARIN 5,000 UNITS/ML, 1ML SQ SCH (07:30)
[2018-04-05 07:57] VITALS: BP 156/98
[2018-04-05] MEDS ORDERED: FUROSEMIDE 40 MG/4 ML IV SCH (09:00)
[2018-04-05] MEDS: AMLODIPINE 5 MG TABLET PO SCH (09:33)
[2018-04-05 12:33] VITALS: BP 127/77
[2018-04-05 20:00] VITALS: BP 134/78
[2018-04-05] MEDS: TIMOLOL OPHTH 0.5%, 5ML RIGHTEYE SCH (20:56)
[2018-04-05] MEDS ORDERED: LATANOPROST OPHTH 0.005%, 2.5ML RIGHTEYE SCH (21:00)
[2018-04-06 00:34] VITALS: BP 145/74
[2018-04-06 05:33] LABS: BASOPHILS % (AUTO) 0 % (0-1); EOSINOPHILS # (AUTO) 0.01 x10^3/uL (0-0.4); EOSINOPHILS % (AUTO) 0 % (1-7); LYMPHOCYTES # (AUTO) 0.92 x10^3/uL (1-3.4); LYMPHOCYTES % (AUTO) 12 % (22-44); MD NO; MEAN CORPUSCULAR HEMOGLOBIN 35.4 pg (27.5-34.5); MEAN CORPUSCULAR VOLUME 107.2 fL (81-97); MONOCYTES # (AUTO) 0.63 x10^3/uL (0.2-0.8); MONOCYTES % (AUTO) 8 % (2-9); NEUTROPHILS # (AUTO) 6.35 x10^3/uL (1.8-6.8); NEUTROPHILS % (AUTO) 80 % (42-75); PLATELET COUNT 261 x10^3/uL (130-400); RED BLOOD COUNT 3.64 x10^6/uL (4.38-5.82); RED CELL DISTRIBUTION WIDTH 17.4 % (9.4-14.8)
[2018-04-06 05:43] LABS: ANION GAP 8 mmol/L (5-15); CALCIUM 8.7 mg/dL (8.5-10.1); CHLORIDE 110 mmol/L (98-107); CREATININE 1.31 mg/dL (0.7-1.3)
[2018-04-06] MEDS ORDERED: ASPIRIN 81 MG TABLET EC PO SCH (06:00)
[2018-04-06] MEDS: METOPROLOL TARTRATE 25 MG TABLET PO SCH (06:06)
[2018-04-06 07:24] VITALS: BP 147/89
[2018-04-06] MEDS: AMLODIPINE 5 MG TABLET PO SCH (08:21)
[2018-04-06] MEDS: TIMOLOL OPHTH 0.5%, 5ML RIGHTEYE SCH (08:22)
[2018-04-06] MEDS ORDERED: FUROSEMIDE 40 MG TABLET PO SCH (10:00)
[2018-04-06] MEDS ORDERED: POTASSIUM CHLORIDE 10 MEQ TABLET.ER PO SCH (10:00)
[2018-04-06 13:20] VITALS: BP 143/82
[2018-04-06] MEDS ORDERED: AMLO-150 PO (14:18)
[2018-04-06] MEDS ORDERED: PRED5TAB PO (14:18)
[2018-04-06] MEDS ORDERED: FURO40TA6 PO (14:18)
== END 2018-04-06 16:35 | disposition home or self-care (01) | DRG 291 ==
LOC: ED 09:06 → EDIP 11:38 → 5SO 13:07
PROVIDERS: ADMIT Hospitalist; ATTEND Hospitalist
PROC: 0W993ZZ Drainage of Right Pleural Cavity, Percutaneous Approach (ICD-10-PCS; principal; 2018-04-04)
DX: I13.0 Hypertensive heart and chronic kidney disease with heart failure and stage 1 through stage 4 chronic kidney disease, or unspecified chronic kidney disease (principal); I50.33 Acute on chronic diastolic (congestive) heart failure; J96.01 Acute respiratory failure with hypoxia; C34.12 Malignant neoplasm of upper lobe, left bronchus or lung; J44.1 Chronic obstructive pulmonary disease with (acute) exacerbation; J98.11 Atelectasis; J91.8 Pleural effusion in other conditions classified elsewhere; N18.3 Chronic kidney disease, stage 3 (moderate); Z88.8 Allergy status to other drugs, medicaments and biological substances; E11.22 Type 2 diabetes mellitus with diabetic chronic kidney disease; G47.33 Obstructive sleep apnea (adult) (pediatric); I48.2 Chronic atrial fibrillation; Z66 Do not resuscitate; Z80.3 Family history of malignant neoplasm of breast; Z80.6 Family history of leukemia; Z85.118 Personal history of other malignant neoplasm of bronchus and lung; Z86.711 Personal history of pulmonary embolism; Z87.891 Personal history of nicotine dependence; Z90.49 Acquired absence of other specified parts of digestive tract; Z97.0 Presence of artificial eye; Z79.82 Long term (current) use of aspirin; Z79.899 Other long term (current) drug therapy
CPT/HCPCS: 32555; 36415; 71045; 71046; 71275; 80048; 80053; 82945; 83605; 83615; 83880; 84157; 84484; 85025; 85610; 85651; 86140; 87040; 87070; 87205; 87400; 88112; 88305; 89051; 93005; 94640; 96374; G0378; J1940; J7620; Q9967; J7512

== ENCOUNTER → 2018-04-09 | Outpatient (CLI) | payer MEDICARE ==
[~2018-04-09] MED LIST changes: +AMLO-150 PO; +PRED5TAB PO
== END | disposition home or self-care (01) ==
LOC: PETCFH 09:16
PROVIDERS: ATTEND Radiology Radiation Oncology
DX: J98.11 Atelectasis (principal); R91.8 Other nonspecific abnormal finding of lung field; C34.12 Malignant neoplasm of upper lobe, left bronchus or lung
CPT/HCPCS: 78815; A9552

== ENCOUNTER → 2018-04-10 | Outpatient (CLI) | payer MEDICARE | END | disposition home or self-care (01) | LOC: ROC 08:06 | PROVIDERS: ATTEND Radiology Radiation Oncology | DX: C34.12 Malignant neoplasm of upper lobe, left bronchus or lung (principal) | CPT/HCPCS: G0463 ==

== ENCOUNTER 2018-05-26 13:07 | Inpatient (IN) | payer MEDICARE ==
[~2018-05-26] VITALS: Ht 190.5 cm; Wt 97.1 kg
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
[2018-05-26] MEDS ORDERED: methylPREDNISolone SOD SUCC 125 MG/2 ML ONE (13:58)
[2018-05-26] MEDS ORDERED: ALBUTEROL/IPRATROPIUM 2.5MG/0.5MG, 3 ML ONE (13:59)
--- NOTE | 2018-05-26 13:59 | NUR ---
REPORT TO NARA JORGENSEN WHO ASSUMED CARE OF PT.
[2018-05-26] MEDS ORDERED: ALBUTEROL/IPRATROPIUM 2.5MG/0.5MG, 3 ML NPPB ONE (14:00)
[2018-05-26] MEDS ORDERED: methylPREDNISolone SOD SUCC 125 MG/2 ML IVP ONE (14:00)
--- NOTE | 2018-05-26 14:03 | NUR ---
REPORT FROM NARA VAUGHN. PT SITTING UP IN [facility], EVEN RESPIRATIONS W/ MILDLY INCREASED WOB. FREQUENT COUGH NOTED. SPO2 88 ON 2L BY NC. NO BASELINE O2 DURING DAYTIME, USES CPAP AT NIGHT. RT AT BEDSIDE FOR BREATHING TX. PT MEDICATED PER EMAR BP/SPO2/ECG MONITORING IN PLACE. NSR ON MONITOR
[2018-05-26 14:13] LABS: BASOPHILS # (AUTO) 0.02 x10^3/uL (0-0.1); BASOPHILS % (AUTO) 0 % (0-1); EOSINOPHILS # (AUTO) 0.05 x10^3/uL (0-0.4); EOSINOPHILS % (AUTO) 1 % (1-7); LYMPHOCYTES # (AUTO) 0.76 x10^3/uL (1-3.4); LYMPHOCYTES % (AUTO) 10 % (22-44); MD NO; MEAN CORPUSCULAR HEMOGLOBIN 35.1 pg (27.5-34.5); MEAN CORPUSCULAR HGB CONC 33.2 g/dL (33.2-36.2); MEAN CORPUSCULAR VOLUME 105.7 fL (81-97); MEAN PLATELET VOLUME 7.3 fL (7.4-10.4); MONOCYTES % (AUTO) 8 % (2-9); NEUTROPHILS # (AUTO) 5.94 x10^3/uL (1.8-6.8); NEUTROPHILS % (AUTO) 81 % (42-75); PLATELET COUNT 272 x10^3/uL (130-400); RED BLOOD COUNT 4.02 x10^6/uL (4.38-5.82)
[2018-05-26 14:25] LABS: ALBUMIN 3.6 g/dL (3.4-5.0); ANION GAP 6 mmol/L (5-15); CALCIUM 8.9 mg/dL (8.5-10.1); CHLORIDE 100 mmol/L (98-107); CREATININE 1.39 mg/dL (0.7-1.3)
[2018-05-26 14:29] LABS: TROPONIN I < 0.015 ng/mL (0.000-0.045)
--- NOTE | 2018-05-26 16:06 | NUR ---
PT REPORTS IMPROVEMENT IN S/S SINCE ARRIVAL. RR WNL, SPO2 94% ON 4L, SPO2 TITRATED DOWN TO 3L, SPO2 >90%. RR WNL. SO REQUESTING ADMIT TO TELE FLOOR. THROUGHPUT AND ERP AWARE
--- NOTE | 2018-05-26 16:29 | NUR ---
PT STANDING AT BS TO USE URINAL. PT DENIES INCREASE IN WOB/SOB W/ ACTIVITY. SPO2 TO 80'S AND RR SLIGHTLY INCREASED, RR 20. O2 TO 4L BY NC; SPO2 >90%. PT SPEAKING IN FULL SENTENCES.
[2018-05-26] MEDS ORDERED: hydrALAzine 20 MG/ML, 1ML IVPush PRN (16:30)
[2018-05-26] MEDS ORDERED: ACETAMINOPHEN 325 MG TABLET PO PRN (16:30)
[2018-05-26] MEDS ORDERED: ONDANSETRON 2MG/ML, 2ML IVPush PRN (16:30)
--- NOTE | 2018-05-26 16:44 | NUR ---
REPORT TO NARA HICKMAN ON SURG
[2018-05-26 17:09] LABS: TROPONIN I < 0.015 ng/mL (0.000-0.045)
[2018-05-26 17:21] VITALS: BP 162/88
[2018-05-26] MEDS ORDERED: MAGNESIUM SULFATE PMX 2GM/50ML 50 ML IV ONE (17:30)
[2018-05-26 18:44] VITALS: BP 149/81
[2018-05-26] MEDS: BUDESONIDE 0.5 MG/2 ML INHA INH SCH (20:03)
[2018-05-26] MEDS: ALBUTEROL/IPRATROPIUM 2.5MG/0.5MG, 3 ML NPPB SCH (20:03)
[2018-05-26] MEDS: LOSARTAN 25MG TABLET PO SCH (20:34)
[2018-05-26] MEDS: methylPREDNISolone SOD SUCC 125 MG/2 ML IVPush SCH (20:34)
[2018-05-26] MEDS: METOPROLOL TARTRATE 25 MG TABLET PO SCH (20:34)
[2018-05-26 23:28] LABS: TROPONIN I < 0.015 ng/mL (0.000-0.045)
[2018-05-27] MEDS: LATANOPROST OPHTH 0.005%, 2.5ML RIGHTEYE SCH ×2 (00:16→20:33)
[2018-05-27 02:23] VITALS: BP 146/68
[2018-05-27] MEDS: methylPREDNISolone SOD SUCC 125 MG/2 ML IVPush SCH ×4 (02:58→20:33)
[2018-05-27 05:31] LABS: BASOPHILS # (AUTO) 0.01 x10^3/uL (0-0.1); BASOPHILS % (AUTO) 0 % (0-1); EOSINOPHILS % (AUTO) 0 % (1-7); LYMPHOCYTES # (AUTO) 0.34 x10^3/uL (1-3.4); LYMPHOCYTES % (AUTO) 9 % (22-44); MD NO; MEAN CORPUSCULAR HEMOGLOBIN 36.4 pg (27.5-34.5); MEAN CORPUSCULAR HGB CONC 34.4 g/dL (33.2-36.2); MEAN CORPUSCULAR VOLUME 105.9 fL (81-97); MEAN PLATELET VOLUME 7.4 fL (7.4-10.4); MONOCYTES # (AUTO) 0.05 x10^3/uL (0.2-0.8); MONOCYTES % (AUTO) 1 % (2-9); NEUTROPHILS # (AUTO) 3.34 x10^3/uL (1.8-6.8); NEUTROPHILS % (AUTO) 90 % (42-75); PLATELET COUNT 238 x10^3/uL (130-400); RED BLOOD COUNT 3.61 x10^6/uL (4.38-5.82); RED CELL DISTRIBUTION WIDTH 15.5 % (9.4-14.8)
[2018-05-27 05:32] LABS: ANION GAP 9 mmol/L (5-15); CALCIUM 8.3 mg/dL (8.5-10.1); CHLORIDE 104 mmol/L (98-107)
[2018-05-27 05:34] LABS: CREATININE 1.33 mg/dL (0.7-1.3)
[2018-05-27] MEDS: ALBUTEROL/IPRATROPIUM 2.5MG/0.5MG, 3 ML NPPB SCH ×2 (07:55→10:17)
[2018-05-27 08:11] VITALS: BP 135/71
[2018-05-27] MEDS: AMLODIPINE 5 MG TABLET PO SCH (08:45)
[2018-05-27] MEDS: LOSARTAN 25MG TABLET PO SCH ×2 (08:45→20:33)
[2018-05-27] MEDS: ASPIRIN 81 MG TABLET EC PO SCH (08:45)
[2018-05-27] MEDS: CHOLECALCIFEROL 5,000u TAB PO SCH (08:45)
[2018-05-27] MEDS: METOPROLOL TARTRATE 25 MG TABLET PO SCH ×2 (08:45→20:33)
[2018-05-27] MEDS: TEMPLATE NON-FORMULARY MED. (Levomefolate/B6/B12/Algal Oil** (Metanx Capsule**) 1 TAB) PO SCH (08:46)
[2018-05-27] MEDS ORDERED: LATANOPROST OPHTH 0.005%, 2.5ML RIGHTEYE SCH (09:00)
[2018-05-27] MEDS ORDERED: FLUTICASONE/VILANTEROL 100-25MCG/INH INH SCH (09:00)
[2018-05-27] MEDS: BUDESONIDE 0.5 MG/2 ML INHA INH SCH (09:00)
[2018-05-27] MEDS: TIMOLOL OPHTH 0.5%, 5ML OP SCH (10:36)
[2018-05-27] MEDS ORDERED: ALBUTEROL/IPRATROPIUM 2.5MG/0.5MG, 3 ML NPPB PRN (12:00)
[2018-05-27] MEDS ORDERED: MAGNESIUM SULFATE PMX 2GM/50ML 50 ML IV ONE (12:00)
[2018-05-27 13:42] VITALS: BP 111/66
[2018-05-27 20:15] VITALS: BP 109/64
[2018-05-28] MEDS: methylPREDNISolone SOD SUCC 125 MG/2 ML IVPush SCH ×3 (01:56→14:00)
[2018-05-28 02:21] VITALS: BP 143/87
[2018-05-28 07:38] VITALS: BP 148/87
[2018-05-28] MEDS ORDERED: BUDESONIDE 0.5 MG/2 ML INHA INH SCH (09:00)
[2018-05-28] MEDS: LOSARTAN 25MG TABLET PO SCH (09:04)
[2018-05-28] MEDS: AMLODIPINE 5 MG TABLET PO SCH (09:04)
[2018-05-28] MEDS: ASPIRIN 81 MG TABLET EC PO SCH (09:04)
[2018-05-28] MEDS: METOPROLOL TARTRATE 25 MG TABLET PO SCH (09:05)
[2018-05-28] MEDS: TIMOLOL OPHTH 0.5%, 5ML OP SCH (09:05)
[2018-05-28] MEDS: TEMPLATE NON-FORMULARY MED. (Levomefolate/B6/B12/Algal Oil** (Metanx Capsule**) 1 TAB) PO SCH (09:05)
[2018-05-28] MEDS: CHOLECALCIFEROL 5,000u TAB PO SCH (09:05)
[2018-05-28] MEDS ORDERED: PRED5TAB PO (12:15)
[2018-05-28] MEDS ORDERED: IPRA3AMP30 NPPB (12:15)
[2018-05-28 13:12] VITALS: BP 120/72
== END 2018-05-28 16:00 | disposition home or self-care (01) | DRG 189 ==
LOC: ED 16:10 → 4NOR 16:23
PROVIDERS: ADMIT Hospitalist; ATTEND Hospitalist
PROC: 5A09357 Assistance with Respiratory Ventilation, Less than 24 Consecutive Hours, Continuous Positive Airway Pressure (ICD-10-PCS; principal; 2018-05-28)
DX: J96.01 Acute respiratory failure with hypoxia (principal); J44.1 Chronic obstructive pulmonary disease with (acute) exacerbation; C34.12 Malignant neoplasm of upper lobe, left bronchus or lung; E87.1 Hypo-osmolality and hyponatremia; I13.0 Hypertensive heart and chronic kidney disease with heart failure and stage 1 through stage 4 chronic kidney disease, or unspecified chronic kidney disease; I50.32 Chronic diastolic (congestive) heart failure; J98.11 Atelectasis; E11.22 Type 2 diabetes mellitus with diabetic chronic kidney disease; G47.33 Obstructive sleep apnea (adult) (pediatric); I48.2 Chronic atrial fibrillation; N18.3 Chronic kidney disease, stage 3 (moderate); Z66 Do not resuscitate; Z80.3 Family history of malignant neoplasm of breast; Z82.49 Family history of ischemic heart disease and other diseases of the circulatory system; Z80.6 Family history of leukemia; Z85.118 Personal history of other malignant neoplasm of bronchus and lung; Z87.891 Personal history of nicotine dependence; Z97.0 Presence of artificial eye; Z88.8 Allergy status to other drugs, medicaments and biological substances; Z90.49 Acquired absence of other specified parts of digestive tract
CPT/HCPCS: 36415; 71045; 71250; 80048; 82040; 83605; 83735; 83880; 84100; 84145; 84484; 85025; 87040; 93005; 94640; G0378; J7620; J7626; J2930; J3475

== ENCOUNTER 2018-07-07 17:46 | Inpatient (IN) | payer MEDICARE ==
[~2018-07-07] VITALS: Ht 188 cm; Wt 99.4 kg
[~2018-07-07 17:46] MED LIST changes: +IPRA3AMP30 NPPB
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
[2018-07-07 18:57] LABS: BASOPHILS # (AUTO) 0.01 x10^3/uL (0-0.1); BASOPHILS % (AUTO) 0 % (0-1); EOSINOPHILS # (AUTO) 0.03 x10^3/uL (0-0.4); EOSINOPHILS % (AUTO) 0 % (1-7); LYMPHOCYTES # (AUTO) 0.67 x10^3/uL (1-3.4); LYMPHOCYTES % (AUTO) 7 % (22-44); MD NO; MEAN CORPUSCULAR HEMOGLOBIN 35.4 pg (27.5-34.5); MEAN CORPUSCULAR HGB CONC 34.1 g/dL (33.2-36.2); MEAN CORPUSCULAR VOLUME 103.7 fL (81-97); MEAN PLATELET VOLUME 7.3 fL (7.4-10.4); MONOCYTES # (AUTO) 0.57 x10^3/uL (0.2-0.8); MONOCYTES % (AUTO) 6 % (2-9); NEUTROPHILS % (AUTO) 87 % (42-75); PLATELET COUNT 231 x10^3/uL (130-400); RED BLOOD COUNT 3.51 x10^6/uL (4.38-5.82); RED CELL DISTRIBUTION WIDTH 14.4 % (9.4-14.8)
[2018-07-07 19:08] LABS: ALBUMIN 2.6 g/dL (3.4-5.0); ANION GAP 10 mmol/L (5-15); CALCIUM 7.9 mg/dL (8.5-10.1); CHLORIDE 102 mmol/L (98-107)
[2018-07-07 19:14] LABS: ALANINE AMINOTRANSFERASE 46 U/L (12-78); ALKALINE PHOSPHATASE 70 U/L (45-117); BILIRUBIN,TOTAL 0.3 mg/dL (0.2-1.0); CREATININE 1.22 mg/dL (0.7-1.3); TOTAL PROTEIN 5.6 g/dL (6.4-8.2); TROPONIN I < 0.015 ng/mL (0.000-0.045)
--- NOTE | 2018-07-07 19:55 | NUR ---
PT RESTING IN ROOM. AWAITING FURTHER ORDERS. PT CONNECTED TO MONITORS AND CALL LIGHT IN REACH.
--- NOTE | 2018-07-07 20:17 | NUR ---
NOE GARCIA UA CUP TO PROVIDE SAMPLE
--- NOTE | 2018-07-07 20:44 | NUR ---
UA COLLECTED AT THIS TIME.
[2018-07-07 20:57] LABS: MICROSCOPIC AUTO
[2018-07-07 21:00] LABS: CULTURE INDICATED? NO
--- NOTE | 2018-07-07 21:38 | NUR ---
HOSPITALIST TO BEDSIDE.
[2018-07-07 22:10] VITALS: BP 159/72
[2018-07-07] MEDS ORDERED: DIPHENHYDRAMINE 50 MG CAPSULE PO PRN (23:00)
[2018-07-07] MEDS ORDERED: LIDODERM 5% PATCH TD PRN (23:00)
[2018-07-07] MEDS ORDERED: LABETALOL 5 MG/ML SYRINGE IVPush PRN (23:00)
[2018-07-07] MEDS ORDERED: BISACODYL 10 MG SUPP PR PRN (23:00)
[2018-07-07] MEDS ORDERED: ACETAMINOPHEN 325 MG TABLET PO PRN (23:00)
[2018-07-07] MEDS: LOSARTAN 25MG TABLET PO SCH (23:07)
[2018-07-07] MEDS: METOPROLOL TARTRATE 25 MG TABLET PO SCH (23:07)
[2018-07-07] MEDS ORDERED: TIMOLOL EYE DROPS MC SCH (23:30)
[2018-07-08 00:14] VITALS: BP 150/87
[2018-07-08 01:11] LABS: TROPONIN I < 0.015 ng/mL (0.000-0.045)
[2018-07-08 07:02] VITALS: BP 150/83
[2018-07-08] MEDS: ALBUTEROL/IPRATROPIUM 2.5MG/0.5MG, 3 ML NPPB SCH ×2 (07:15→21:00)
[2018-07-08 08:25] LABS: BASOPHILS % (AUTO) 0 % (0-1); EOSINOPHILS % (AUTO) 0 % (1-7); LYMPHOCYTES # (AUTO) 0.43 x10^3/uL (1-3.4); LYMPHOCYTES % (AUTO) 6 % (22-44); MD NO; MEAN CORPUSCULAR HGB CONC 33.9 g/dL (33.2-36.2); MEAN CORPUSCULAR VOLUME 103.4 fL (81-97); MEAN PLATELET VOLUME 7.4 fL (7.4-10.4); MONOCYTES # (AUTO) 0.16 x10^3/uL (0.2-0.8); MONOCYTES % (AUTO) 2 % (2-9); NEUTROPHILS # (AUTO) 6.85 x10^3/uL (1.8-6.8); NEUTROPHILS % (AUTO) 92 % (42-75); PLATELET COUNT 251 x10^3/uL (130-400); RED BLOOD COUNT 3.74 x10^6/uL (4.38-5.82); RED CELL DISTRIBUTION WIDTH 14.3 % (9.4-14.8)
[2018-07-08 08:33] LABS: ANION GAP 5 mmol/L (5-15); CALCIUM 8.3 mg/dL (8.5-10.1); CHLORIDE 102 mmol/L (98-107); CREATININE 1.11 mg/dL (0.7-1.3)
[2018-07-08 08:36] LABS: TROPONIN I < 0.015 ng/mL (0.000-0.045)
[2018-07-08] MEDS: B12 PO SCH (08:49)
[2018-07-08] MEDS: LEVOMEFOLATE PO SCH (08:49)
[2018-07-08] MEDS: ALGAL OIL PO SCH (08:49)
[2018-07-08] MEDS: B6 PO SCH (08:49)
[2018-07-08] MEDS ORDERED: TIMOLOL OPHTH 0.5%, 5ML RIGHTEYE SCH (09:00)
[2018-07-08] MEDS ORDERED: TEMPLATE NON-FORMULARY MED. (Timolol Maleate 1 DROP) OP SCH (09:00)
[2018-07-08] MEDS: FUROSEMIDE 40 MG/4 ML IV SCH ×2 (09:08→17:48)
[2018-07-08] MEDS: CHOLECALCIFEROL 5,000u TAB PO SCH (09:08)
[2018-07-08] MEDS: ASPIRIN 81 MG TABLET EC PO SCH (09:08)
[2018-07-08] MEDS: METOPROLOL TARTRATE 25 MG TABLET PO SCH ×2 (09:09→21:00)
[2018-07-08] MEDS: LOSARTAN 25MG TABLET PO SCH ×2 (09:09→21:00)
[2018-07-08] MEDS: LATANOPROST OPHTH 0.005%, 2.5ML RIGHTEYE SCH ×2 (09:18→10:27)
[2018-07-08] MEDS: TIMOLOL OPHTH 0.5%, 5ML RIGHTEYE SCH (11:38)
[2018-07-08 12:10] VITALS: BP 155/94
[2018-07-08 15:00] VITALS: BP_SYST 108; BP_SYST 117; BP_SYST 131; BP_DIAS 66; BP_DIAS 77
[2018-07-08 17:45] VITALS: BP 149/90
[2018-07-08 18:32] LABS: HEMOGLOBIN A1C 6.4 % (4.2-6.3)
[2018-07-08 19:41] VITALS: BP 123/68
[2018-07-08] MEDS ORDERED: LATANOPROST OPHTH 0.005%, 2.5ML RIGHTEYE SCH (21:00)
[2018-07-09 00:20] VITALS: BP 142/86
[2018-07-09 05:14] LABS: BASOPHILS % (AUTO) 0 % (0-1); EOSINOPHILS % (AUTO) 0 % (1-7); LYMPHOCYTES # (AUTO) 0.55 x10^3/uL (1-3.4); LYMPHOCYTES % (AUTO) 5 % (22-44); MD NO; MEAN CORPUSCULAR HEMOGLOBIN 35.5 pg (27.5-34.5); MEAN CORPUSCULAR VOLUME 104.3 fL (81-97); MEAN PLATELET VOLUME 7.8 fL (7.4-10.4); MONOCYTES # (AUTO) 0.69 x10^3/uL (0.2-0.8); MONOCYTES % (AUTO) 6 % (2-9); NEUTROPHILS # (AUTO) 10.58 x10^3/uL (1.8-6.8); NEUTROPHILS % (AUTO) 90 % (42-75); PLATELET COUNT 242 x10^3/uL (130-400); RED BLOOD COUNT 3.62 x10^6/uL (4.38-5.82); RED CELL DISTRIBUTION WIDTH 14.9 % (9.4-14.8)
[2018-07-09 05:19] LABS: ANION GAP 8 mmol/L (5-15); CALCIUM 8.7 mg/dL (8.5-10.1); CHLORIDE 106 mmol/L (98-107); CREATININE 1.45 mg/dL (0.7-1.3)
[2018-07-09] MEDS ORDERED: PHARMACY MAY ADJ FOR RENAL FX MC PRN (08:30)
[2018-07-09 08:36] VITALS: BP 152/94
[2018-07-09] MEDS: B12 PO SCH (09:00)
[2018-07-09] MEDS: ALGAL OIL PO SCH (09:00)
[2018-07-09] MEDS: LEVOMEFOLATE PO SCH (09:00)
[2018-07-09] MEDS: B6 PO SCH (09:00)
[2018-07-09 09:11] VITALS: BP 147/83
[2018-07-09] MEDS: METOPROLOL TARTRATE 25 MG TABLET PO SCH (09:11)
[2018-07-09] MEDS: LOSARTAN 25MG TABLET PO SCH (09:12)
[2018-07-09] MEDS: ASPIRIN 81 MG TABLET EC PO SCH (09:12)
[2018-07-09] MEDS: CHOLECALCIFEROL 5,000u TAB PO SCH (09:12)
[2018-07-09] MEDS: TIMOLOL OPHTH 0.5%, 5ML RIGHTEYE SCH (09:13)
[2018-07-09] MEDS: ALBUTEROL/IPRATROPIUM 2.5MG/0.5MG, 3 ML NPPB SCH (10:25)
[2018-07-09] MEDS ORDERED: MAGNESIUM SULFATE PMX 4GM/100M 100 ML IV ONE (11:00)
[2018-07-09 14:34] VITALS: BP 114/70
[2018-07-09] MEDS ORDERED: PRED20TA PO (16:16)
== END 2018-07-09 18:32 | disposition home or self-care (01) | DRG 73 ==
LOC: ED 19:19 → EDIP 21:22 → 5SO 21:59
PROVIDERS: ADMIT Family Medicine; ATTEND Family Medicine
DX: G90.8 Other disorders of autonomic nervous system (principal); J96.20 Acute and chronic respiratory failure, unspecified whether with hypoxia or hypercapnia; I50.43 Acute on chronic combined systolic (congestive) and diastolic (congestive) heart failure; I13.0 Hypertensive heart and chronic kidney disease with heart failure and stage 1 through stage 4 chronic kidney disease, or unspecified chronic kidney disease; D68.59 Other primary thrombophilia; E87.1 Hypo-osmolality and hyponatremia; J44.1 Chronic obstructive pulmonary disease with (acute) exacerbation; J98.11 Atelectasis; F10.120 Alcohol abuse with intoxication, uncomplicated; D69.2 Other nonthrombocytopenic purpura; D53.9 Nutritional anemia, unspecified; E11.22 Type 2 diabetes mellitus with diabetic chronic kidney disease; E11.43 Type 2 diabetes mellitus with diabetic autonomic (poly)neuropathy; E11.65 Type 2 diabetes mellitus with hyperglycemia; E83.42 Hypomagnesemia; G47.33 Obstructive sleep apnea (adult) (pediatric); I27.20 Pulmonary hypertension, unspecified; I08.3 Combined rheumatic disorders of mitral, aortic and tricuspid valves; Y90.6 Blood alcohol level of 120-199 mg/100 ml; I48.2 Chronic atrial fibrillation; I65.23 Occlusion and stenosis of bilateral carotid arteries; N18.3 Chronic kidney disease, stage 3 (moderate); T38.0X5A Adverse effect of glucocorticoids and synthetic analogues, initial encounter; Z79.52 Long term (current) use of systemic steroids; Z80.3 Family history of malignant neoplasm of breast; Z80.6 Family history of leukemia; Z85.118 Personal history of other malignant neoplasm of bronchus and lung; Z87.891 Personal history of nicotine dependence; Z88.8 Allergy status to other drugs, medicaments and biological substances; Z92.3 Personal history of irradiation; Z97.0 Presence of artificial eye; Z99.81 Dependence on supplemental oxygen
CPT/HCPCS: 36415; 70450; 71045; 80048; 80053; 80307; 81001; 82607; 83036; 83735; 83880; 84443; 84484; 85025; 93005; 93306; 93880; 94640; 99285; G0378; J1940; J7620; J3475; J7512

== ENCOUNTER → 2018-08-26 | Outpatient (CLI) | payer MEDICARE | END | disposition home or self-care (01) | LOC: RAD 10:41 | PROVIDERS: ATTEND Radiology Radiation Oncology | DX: C34.12 Malignant neoplasm of upper lobe, left bronchus or lung (principal); J90 Pleural effusion, not elsewhere classified; J98.11 Atelectasis | CPT/HCPCS: 71250 ==

== ENCOUNTER → 2018-08-28 | Outpatient (CLI) | payer MEDICARE | END | disposition home or self-care (01) | LOC: ROC 09:15 | PROVIDERS: ATTEND Radiology Radiation Oncology | DX: Z08 Encounter for follow-up examination after completed treatment for malignant neoplasm (principal); Z85.118 Personal history of other malignant neoplasm of bronchus and lung | CPT/HCPCS: G0463 ==

== ENCOUNTER 2018-09-01 12:06 | Outpatient (CLI) | payer MEDICARE ==
[2018-09-01] MEDS ORDERED: LIDOCAINE-MPF 1%, 5ML ONE (12:30)
== END 2018-09-01 23:59 | disposition home or self-care (01) ==
LOC: RAD 12:06
PROVIDERS: ATTEND Internal Medicine
DX: C34.91 Malignant neoplasm of unspecified part of right bronchus or lung (principal); J91.8 Pleural effusion in other conditions classified elsewhere; J98.11 Atelectasis
CPT/HCPCS: 32555

== ENCOUNTER 2018-09-22 09:28 | Inpatient (IN) | payer MEDICARE ==
[~2018-09-22] VITALS: Ht 190.5 cm; Wt 101.2 kg
[2018-09-22 10:01] LABS: MEAN CORPUSCULAR HEMOGLOBIN 35.3 pg (27.5-34.5); MEAN PLATELET VOLUME 7.2 fL (7.4-10.4); PLATELET COUNT 228 x10^3/uL (130-400); RED BLOOD COUNT 3.79 x10^6/uL (4.38-5.82); RED CELL DISTRIBUTION WIDTH 15.8 % (9.4-14.8)
[2018-09-22 10:14] LABS: ALBUMIN 3.5 g/dL (3.4-5.0); ANION GAP 8 mmol/L (5-15); CALCIUM 8.7 mg/dL (8.5-10.1); CHLORIDE 104 mmol/L (98-107)
[2018-09-22 10:17] LABS: ALANINE AMINOTRANSFERASE 55 U/L (12-78); ALKALINE PHOSPHATASE 75 U/L (45-117); BILIRUBIN,TOTAL 0.7 mg/dL (0.2-1.0); CREATININE 1.43 mg/dL (0.7-1.3); TOTAL PROTEIN 6.5 g/dL (6.4-8.2); TROPONIN I < 0.015 ng/mL (0.000-0.045)
[2018-09-22] MEDS ORDERED: ALBUTEROL/IPRATROPIUM 2.5MG/0.5MG, 3 ML ONE (10:36)
[2018-09-22 10:39] LABS: MD MORPH REVIEW ONLY
[2018-09-22] MEDS: ALBUTEROL/IPRATROPIUM 2.5MG/0.5MG, 3 ML NPPB SCH ×2 (10:39→10:42)
[2018-09-22 10:40] LABS: ANISOCYTOSIS 1+; BASOPHILS # (AUTO) 0.01 x10^3/uL (0-0.1); BASOPHILS % (AUTO) 0 % (0-1); EOSINOPHILS # (AUTO) 0.09 x10^3/uL (0-0.4); EOSINOPHILS % (AUTO) 1 % (1-7); LYMPHOCYTES # (AUTO) 0.54 x10^3/uL (1-3.4); LYMPHOCYTES % (AUTO) 5 % (22-44); MONOCYTES # (AUTO) 0.96 x10^3/uL (0.2-0.8); MONOCYTES % (AUTO) 9 % (2-9); NEUTROPHILS # (AUTO) 9.11 x10^3/uL (1.8-6.8); NEUTROPHILS % (AUTO) 85 % (42-75)
[2018-09-22 10:41] LABS: <PLATELET ESTIMATE> ADEQUATE; <PLT MORPHOLOGY> NORMAL PLT MORPH
[2018-09-22] MEDS ORDERED: PRED10TA PO (10:51)
[2018-09-22] MEDS ORDERED: methylPREDNISolone SOD SUCC 125 MG/2 ML ONE (10:53)
[2018-09-22] MEDS ORDERED: methylPREDNISolone SOD SUCC 125 MG/2 ML IVPush SCH (11:00)
[2018-09-22 11:48] VITALS: BP 146/70
[2018-09-22] MEDS ORDERED: ACETAMINOPHEN 325 MG TABLET PO PRN (13:00)
[2018-09-22] MEDS ORDERED: FLUTICASONE/VILANTEROL 200-25MCG/INH INH SCH (13:00)
[2018-09-22] MEDS ORDERED: DOCUSATE 100 MG CAPSULE PO PRN (13:00)
[2018-09-22 13:01] VITALS: BP 139/79
[2018-09-22] MEDS ORDERED: TIMOLOL STRENGTH MC SCH (13:30)
[2018-09-22] MEDS ORDERED: ALBUTEROL/IPRATROPIUM 2.5MG/0.5MG, 3 ML HHN SCH (13:30)
[2018-09-22] MEDS ORDERED: ALBUTEROL/IPRATROPIUM 2.5MG/0.5MG, 3 ML NPPB SCH (15:00)
[2018-09-22] MEDS: ALBUTEROL/IPRATROPIUM 2.5MG/0.5MG, 3 ML HHN SCH ×2 (15:00→20:13)
[2018-09-22 15:37] VITALS: BP 124/83
[2018-09-22 18:36] VITALS: BP 126/80
[2018-09-22] MEDS ORDERED: BUDESONIDE 0.5 MG/2 ML INHA HHN SCH (21:00)
[2018-09-22] MEDS: DOXYCYCLINE 100MG TABLET PO SCH (21:05)
[2018-09-22] MEDS: MONTELUKAST 10 MG TABLET PO SCH (21:05)
[2018-09-22] MEDS: LOSARTAN 25MG TABLET PO SCH (21:06)
[2018-09-22] MEDS: METOPROLOL TARTRATE 25 MG TABLET PO SCH (21:06)
[2018-09-23 01:25] VITALS: BP 153/90
[2018-09-23] MEDS: ALBUTEROL/IPRATROPIUM 2.5MG/0.5MG, 3 ML HHN SCH ×4 (02:45→20:40)
[2018-09-23 05:43] LABS: ANION GAP 8 mmol/L (5-15); CALCIUM 8.6 mg/dL (8.5-10.1); CHLORIDE 107 mmol/L (98-107)
[2018-09-23 05:54] LABS: MEAN CORPUSCULAR HEMOGLOBIN 36.5 pg (27.5-34.5); MEAN CORPUSCULAR HGB CONC 33.5 g/dL (33.2-36.2); MEAN PLATELET VOLUME 7.8 fL (7.4-10.4); PLATELET COUNT 187 x10^3/uL (130-400); RED BLOOD COUNT 3.38 x10^6/uL (4.38-5.82); RED CELL DISTRIBUTION WIDTH 15.3 % (9.4-14.8)
[2018-09-23 05:56] LABS: CREATININE 1.21 mg/dL (0.7-1.3)
[2018-09-23 06:05] LABS: BASOPHILS % (AUTO) 0 % (0-1); EOSINOPHILS % (AUTO) 0 % (1-7); LYMPHOCYTES # (AUTO) 0.38 x10^3/uL (1-3.4); LYMPHOCYTES % (AUTO) 6 % (22-44); MD NO; MONOCYTES % (AUTO) 8 % (2-9); NEUTROPHILS # (AUTO) 5.22 x10^3/uL (1.8-6.8); NEUTROPHILS % (AUTO) 86 % (42-75)
[2018-09-23 07:07] VITALS: BP 157/93
[2018-09-23] MEDS ORDERED: LATANOPROST OPHTH 0.005%, 2.5ML RIGHTEYE SCH (09:00)
[2018-09-23] MEDS ORDERED: TEMPLATE NON-FORMULARY MED. (Timolol Maleate 1 DROP) OP SCH (09:00)
[2018-09-23] MEDS: ASPIRIN 81 MG TABLET EC PO SCH (09:46)
[2018-09-23] MEDS: DOXYCYCLINE 100MG TABLET PO SCH ×2 (09:46→20:07)
[2018-09-23] MEDS: FUROSEMIDE 40 MG TABLET PO SCH (09:46)
[2018-09-23] MEDS: LOSARTAN 25MG TABLET PO SCH ×2 (09:46→20:08)
[2018-09-23] MEDS: METOPROLOL TARTRATE 25 MG TABLET PO SCH ×2 (09:46→20:07)
[2018-09-23] MEDS: methylPREDNISolone SOD SUCC 125 MG/2 ML IVPush SCH ×3 (09:47→19:47)
[2018-09-23] MEDS: MULTIVITS,STRESS FORMULA 1 TABLET PO SCH (09:47)
[2018-09-23] MEDS: CHOLECALCIFEROL 5,000u TAB PO SCH (09:47)
[2018-09-23] MEDS: CEFTRIAXONE PMX 1GM/50ML 50 ML IV SCH (10:50)
[2018-09-23] MEDS: TIMOLOL OPHTH 0.5%, 5ML OP SCH (10:51)
[2018-09-23 13:12] VITALS: BP 146/64
[2018-09-23] MEDS ORDERED: FUROSEMIDE 40 MG TABLET PO ONE (14:00)
[2018-09-23] MEDS: MAGNESIUM OXIDE 400 MG TABLET PO SCH ×2 (14:45→20:07)
[2018-09-23 19:32] VITALS: BP 138/77
[2018-09-23] MEDS: MONTELUKAST 10 MG TABLET PO SCH (20:07)
[2018-09-23] MEDS: LATANOPROST OPHTH 0.005%, 2.5ML RIGHTEYE SCH (20:12)
[2018-09-24 01:04] VITALS: BP 149/90
[2018-09-24] MEDS: methylPREDNISolone SOD SUCC 125 MG/2 ML IVPush SCH ×3 (03:31→20:01)
[2018-09-24] MEDS: ALBUTEROL/IPRATROPIUM 2.5MG/0.5MG, 3 ML HHN SCH ×4 (07:11→20:00)
[2018-09-24 08:15] VITALS: BP 165/100
[2018-09-24 10:25] LABS: ANION GAP 10 mmol/L (5-15); CHLORIDE 105 mmol/L (98-107); CREATININE 1.68 mg/dL (0.7-1.3)
[2018-09-24 10:30] LABS: MEAN CORPUSCULAR HEMOGLOBIN 34.9 pg (27.5-34.5); MEAN CORPUSCULAR HGB CONC 32.5 g/dL (33.2-36.2); MEAN CORPUSCULAR VOLUME 107.4 fL (81-97); MEAN PLATELET VOLUME 7.9 fL (7.4-10.4); PLATELET COUNT 223 x10^3/uL (130-400); RED CELL DISTRIBUTION WIDTH 15.9 % (9.4-14.8)
[2018-09-24] MEDS: ASPIRIN 81 MG TABLET EC PO SCH (10:41)
[2018-09-24] MEDS: TIMOLOL OPHTH 0.5%, 5ML OP SCH (10:41)
[2018-09-24] MEDS: MULTIVITS,STRESS FORMULA 1 TABLET PO SCH (10:42)
[2018-09-24] MEDS: CHOLECALCIFEROL 5,000u TAB PO SCH (10:42)
[2018-09-24] MEDS: DOXYCYCLINE 100MG TABLET PO SCH ×2 (10:42→20:01)
[2018-09-24] MEDS: MAGNESIUM OXIDE 400 MG TABLET PO SCH ×2 (10:42→20:02)
[2018-09-24] MEDS: LOSARTAN 25MG TABLET PO SCH ×2 (10:42→20:01)
[2018-09-24] MEDS: METOPROLOL TARTRATE 25 MG TABLET PO SCH ×2 (10:43→20:01)
[2018-09-24] MEDS: FUROSEMIDE 40 MG TABLET PO SCH (10:43)
[2018-09-24 10:52] LABS: BASOPHILS % (AUTO) 0 % (0-1); EOSINOPHILS % (AUTO) 0 % (1-7); LYMPHOCYTES # (AUTO) 0.33 x10^3/uL (1-3.4); LYMPHOCYTES % (AUTO) 3 % (22-44); MD SCAN; MONOCYTES # (AUTO) 0.29 x10^3/uL (0.2-0.8); MONOCYTES % (AUTO) 3 % (2-9); NEUTROPHILS % (AUTO) 94 % (42-75)
[2018-09-24] MEDS: CEFTRIAXONE PMX 1GM/50ML 50 ML IV SCH (11:22)
[2018-09-24 13:48] VITALS: BP 125/76
[2018-09-24 19:54] VITALS: BP 159/93
[2018-09-24] MEDS: MONTELUKAST 10 MG TABLET PO SCH (20:01)
[2018-09-24] MEDS: LATANOPROST OPHTH 0.005%, 2.5ML RIGHTEYE SCH (20:02)
[2018-09-25 02:00] VITALS: BP 161/94
[2018-09-25] MEDS: methylPREDNISolone SOD SUCC 125 MG/2 ML IVPush SCH ×3 (04:27→21:06)
[2018-09-25 07:37] VITALS: BP 152/98
[2018-09-25] MEDS: ALBUTEROL/IPRATROPIUM 2.5MG/0.5MG, 3 ML HHN SCH ×4 (07:50→20:30)
[2018-09-25 09:07] LABS: MEAN CORPUSCULAR HEMOGLOBIN 35.3 pg (27.5-34.5); MEAN CORPUSCULAR HGB CONC 32.6 g/dL (33.2-36.2); MEAN CORPUSCULAR VOLUME 108.3 fL (81-97); MEAN PLATELET VOLUME 7.9 fL (7.4-10.4); PLATELET COUNT 232 x10^3/uL (130-400); RED BLOOD COUNT 3.95 x10^6/uL (4.38-5.82); RED CELL DISTRIBUTION WIDTH 15.7 % (9.4-14.8)
[2018-09-25] MEDS: DOXYCYCLINE 100MG TABLET PO SCH ×2 (09:20→21:07)
[2018-09-25] MEDS: METOPROLOL TARTRATE 25 MG TABLET PO SCH ×2 (09:21→21:07)
[2018-09-25] MEDS: LOSARTAN 25MG TABLET PO SCH ×2 (09:21→21:07)
[2018-09-25] MEDS: CHOLECALCIFEROL 5,000u TAB PO SCH (09:21)
[2018-09-25] MEDS: MULTIVITS,STRESS FORMULA 1 TABLET PO SCH (09:21)
[2018-09-25] MEDS: FUROSEMIDE 40 MG TABLET PO SCH (09:21)
[2018-09-25] MEDS: MAGNESIUM OXIDE 400 MG TABLET PO SCH ×2 (09:21→21:07)
[2018-09-25] MEDS: ASPIRIN 81 MG TABLET EC PO SCH (09:21)
[2018-09-25 09:25] LABS: BASOPHILS % (AUTO) 0 % (0-1); EOSINOPHILS % (AUTO) 0 % (1-7); LYMPHOCYTES # (AUTO) 0.35 x10^3/uL (1-3.4); LYMPHOCYTES % (AUTO) 3 % (22-44); MD SCAN; MONOCYTES # (AUTO) 0.15 x10^3/uL (0.2-0.8); MONOCYTES % (AUTO) 1 % (2-9); NEUTROPHILS # (AUTO) 11.61 x10^3/uL (1.8-6.8); NEUTROPHILS % (AUTO) 96 % (42-75)
[2018-09-25 09:36] LABS: ANION GAP 8 mmol/L (5-15); CALCIUM 9.4 mg/dL (8.5-10.1); CHLORIDE 106 mmol/L (98-107); CREATININE 1.44 mg/dL (0.7-1.3)
[2018-09-25] MEDS ORDERED: FUROSEMIDE 20 MG/2 ML ONE (09:40)
[2018-09-25] MEDS: TIMOLOL OPHTH 0.5%, 5ML OP SCH (09:43)
[2018-09-25] MEDS: CEFTRIAXONE PMX 1GM/50ML 50 ML IV SCH (11:43)
[2018-09-25] MEDS ORDERED: FUROSEMIDE 20 MG/2 ML IV ONE (13:00)
[2018-09-25 14:10] VITALS: BP 161/93
[2018-09-25 18:57] VITALS: BP 138/79
[2018-09-25] MEDS: LATANOPROST OPHTH 0.005%, 2.5ML RIGHTEYE SCH (21:07)
[2018-09-25] MEDS: MONTELUKAST 10 MG TABLET PO SCH (21:07)
[2018-09-26 00:31] VITALS: BP 189/102
[2018-09-26 01:19] VITALS: BP 150/89
[2018-09-26 04:36] LABS: MEAN CORPUSCULAR HEMOGLOBIN 36.1 pg (27.5-34.5); MEAN CORPUSCULAR VOLUME 109.2 fL (81-97); MEAN PLATELET VOLUME 7.9 fL (7.4-10.4); PLATELET COUNT 222 x10^3/uL (130-400); RED BLOOD COUNT 3.77 x10^6/uL (4.38-5.82); RED CELL DISTRIBUTION WIDTH 15.7 % (9.4-14.8)
[2018-09-26 04:47] LABS: ANION GAP 9 mmol/L (5-15); CALCIUM 8.8 mg/dL (8.5-10.1); CHLORIDE 107 mmol/L (98-107)
[2018-09-26 05:56] LABS: BASOPHILS # (AUTO) 0.02 x10^3/uL (0-0.1); BASOPHILS % (AUTO) 0 % (0-1); EOSINOPHILS % (AUTO) 0 % (1-7); LYMPHOCYTES # (AUTO) 0.27 x10^3/uL (1-3.4); LYMPHOCYTES % (AUTO) 2 % (22-44); MD SCAN; MONOCYTES # (AUTO) 0.16 x10^3/uL (0.2-0.8); MONOCYTES % (AUTO) 1 % (2-9); NEUTROPHILS # (AUTO) 11.57 x10^3/uL (1.8-6.8); NEUTROPHILS % (AUTO) 96 % (42-75)
[2018-09-26] MEDS: methylPREDNISolone SOD SUCC 125 MG/2 ML IVPush SCH ×3 (06:16→21:43)
[2018-09-26 06:50] VITALS: BP 176/96
[2018-09-26] MEDS: ALBUTEROL/IPRATROPIUM 2.5MG/0.5MG, 3 ML HHN SCH ×4 (07:00→18:42)
[2018-09-26] MEDS: TIMOLOL OPHTH 0.5%, 5ML OP SCH (09:06)
[2018-09-26] MEDS: ASPIRIN 81 MG TABLET EC PO SCH (09:07)
[2018-09-26] MEDS: DOXYCYCLINE 100MG TABLET PO SCH ×2 (09:07→21:43)
[2018-09-26] MEDS: MULTIVITS,STRESS FORMULA 1 TABLET PO SCH (09:07)
[2018-09-26] MEDS: MAGNESIUM OXIDE 400 MG TABLET PO SCH ×2 (09:07→21:43)
[2018-09-26] MEDS: CHOLECALCIFEROL 5,000u TAB PO SCH (09:07)
[2018-09-26] MEDS: FUROSEMIDE 40 MG TABLET PO SCH (09:08)
[2018-09-26] MEDS: LOSARTAN 25MG TABLET PO SCH ×2 (09:08→21:43)
[2018-09-26] MEDS: METOPROLOL TARTRATE 25 MG TABLET PO SCH ×2 (09:08→21:43)
[2018-09-26] MEDS: CEFTRIAXONE PMX 1GM/50ML 50 ML IV SCH (11:26)
[2018-09-26 11:52] VITALS: BP 165/96
[2018-09-26 14:00] VITALS: BP 136/83
[2018-09-26 19:19] VITALS: BP 137/89
[2018-09-26] MEDS: MONTELUKAST 10 MG TABLET PO SCH (21:43)
[2018-09-26] MEDS: LATANOPROST OPHTH 0.005%, 2.5ML RIGHTEYE SCH (21:52)
[2018-09-27 02:28] VITALS: BP 171/98
[2018-09-27] MEDS: methylPREDNISolone SOD SUCC 125 MG/2 ML IVPush SCH ×2 (05:30→20:46)
[2018-09-27] MEDS: ALBUTEROL/IPRATROPIUM 2.5MG/0.5MG, 3 ML HHN SCH ×4 (06:29→19:04)
[2018-09-27 07:40] VITALS: BP 151/99
[2018-09-27] MEDS: ASPIRIN 81 MG TABLET EC PO SCH (08:52)
[2018-09-27] MEDS: DOXYCYCLINE 100MG TABLET PO SCH (08:52)
[2018-09-27] MEDS: MULTIVITS,STRESS FORMULA 1 TABLET PO SCH (08:53)
[2018-09-27] MEDS: FUROSEMIDE 40 MG TABLET PO SCH ×2 (08:53→20:47)
[2018-09-27] MEDS: LOSARTAN 25MG TABLET PO SCH ×2 (08:53→20:47)
[2018-09-27] MEDS: MAGNESIUM OXIDE 400 MG TABLET PO SCH ×2 (08:53→20:47)
[2018-09-27] MEDS: METOPROLOL TARTRATE 25 MG TABLET PO SCH ×2 (08:53→20:47)
[2018-09-27] MEDS: CHOLECALCIFEROL 5,000u TAB PO SCH (08:53)
[2018-09-27] MEDS: TIMOLOL OPHTH 0.5%, 5ML OP SCH (08:53)
[2018-09-27 09:02] LABS: HEMOGLOBIN A1C 6.3 % (4.2-6.3)
[2018-09-27] MEDS: CEFTRIAXONE PMX 1GM/50ML 50 ML IV SCH (12:14)
[2018-09-27 12:58] VITALS: BP 130/73
[2018-09-27 18:32] VITALS: BP 148/88
[2018-09-27 20:45] VITALS: BP 151/80
[2018-09-27] MEDS: LATANOPROST OPHTH 0.005%, 2.5ML RIGHTEYE SCH (20:47)
[2018-09-27] MEDS: MONTELUKAST 10 MG TABLET PO SCH (20:47)
[2018-09-28 02:49] VITALS: BP 169/107
[2018-09-28 03:30] VITALS: BP 168/103
[2018-09-28 05:38] LABS: MEAN CORPUSCULAR HEMOGLOBIN 36.1 pg (27.5-34.5); MEAN CORPUSCULAR HGB CONC 33.2 g/dL (33.2-36.2); MEAN CORPUSCULAR VOLUME 108.7 fL (81-97); MEAN PLATELET VOLUME 7.8 fL (7.4-10.4); PLATELET COUNT 231 x10^3/uL (130-400); RED BLOOD COUNT 4.05 x10^6/uL (4.38-5.82); RED CELL DISTRIBUTION WIDTH 15.4 % (9.4-14.8)
[2018-09-28 05:50] LABS: CHLORIDE 105 mmol/L (98-107)
[2018-09-28 05:59] LABS: ANION GAP 9 mmol/L (5-15); CALCIUM 8.6 mg/dL (8.5-10.1); CREATININE 1.46 mg/dL (0.7-1.3)
[2018-09-28 06:01] LABS: BASOPHILS % (AUTO) 0 % (0-1); EOSINOPHILS % (AUTO) 0 % (1-7); LYMPHOCYTES # (AUTO) 0.35 x10^3/uL (1-3.4); LYMPHOCYTES % (AUTO) 3 % (22-44); MD SCAN; MONOCYTES # (AUTO) 0.16 x10^3/uL (0.2-0.8); MONOCYTES % (AUTO) 1 % (2-9); NEUTROPHILS # (AUTO) 11.95 x10^3/uL (1.8-6.8); NEUTROPHILS % (AUTO) 96 % (42-75)
[2018-09-28] MEDS: ALBUTEROL/IPRATROPIUM 2.5MG/0.5MG, 3 ML HHN SCH ×4 (07:00→18:47)
[2018-09-28 07:52] VITALS: BP 159/103
[2018-09-28] MEDS: TIMOLOL OPHTH 0.5%, 5ML OP SCH (08:49)
[2018-09-28] MEDS: AZITHROMYCIN 500 MG TABLET PO SCH ×2 (08:49→08:59)
[2018-09-28] MEDS: CHOLECALCIFEROL 5,000u TAB PO SCH (08:49)
[2018-09-28] MEDS: ASPIRIN 81 MG TABLET EC PO SCH (08:49)
[2018-09-28] MEDS: MAGNESIUM OXIDE 400 MG TABLET PO SCH ×2 (08:49→20:58)
[2018-09-28] MEDS: MULTIVITS,STRESS FORMULA 1 TABLET PO SCH (08:49)
[2018-09-28] MEDS: METOPROLOL TARTRATE 25 MG TABLET PO SCH ×2 (08:50→20:58)
[2018-09-28] MEDS: methylPREDNISolone SOD SUCC 125 MG/2 ML IVPush SCH ×2 (08:50→20:59)
[2018-09-28] MEDS: FUROSEMIDE 40 MG TABLET PO SCH ×2 (08:50→20:58)
[2018-09-28] MEDS: LOSARTAN 25MG TABLET PO SCH ×2 (08:50→20:58)
[2018-09-28] MEDS: CEFTRIAXONE PMX 1GM/50ML 50 ML IV SCH (12:07)
[2018-09-28 13:39] VITALS: BP 131/85
[2018-09-28 18:30] VITALS: BP 128/79
[2018-09-28] MEDS: MONTELUKAST 10 MG TABLET PO SCH (20:58)
[2018-09-28] MEDS: LATANOPROST OPHTH 0.005%, 2.5ML RIGHTEYE SCH (21:00)
[2018-09-29 00:42] VITALS: BP 165/100
[2018-09-29 01:36] VITALS: BP 158/97
[2018-09-29 03:44] LABS: MEAN CORPUSCULAR HEMOGLOBIN 34.5 pg (27.5-34.5); MEAN CORPUSCULAR HGB CONC 32.1 g/dL (33.2-36.2); MEAN CORPUSCULAR VOLUME 107.5 fL (81-97); PLATELET COUNT 236 x10^3/uL (130-400); RED BLOOD COUNT 4.21 x10^6/uL (4.38-5.82); RED CELL DISTRIBUTION WIDTH 15.4 % (9.4-14.8)
[2018-09-29 03:51] LABS: ANION GAP 8 mmol/L (5-15); CALCIUM 8.8 mg/dL (8.5-10.1); CHLORIDE 105 mmol/L (98-107)
[2018-09-29 03:53] LABS: CREATININE 1.39 mg/dL (0.7-1.3)
[2018-09-29 05:44] LABS: BASOPHILS % (AUTO) 0 % (0-1); EOSINOPHILS % (AUTO) 0 % (1-7); LYMPHOCYTES # (AUTO) 0.28 x10^3/uL (1-3.4); LYMPHOCYTES % (AUTO) 2 % (22-44); MD SCAN; MONOCYTES # (AUTO) 0.19 x10^3/uL (0.2-0.8); MONOCYTES % (AUTO) 2 % (2-9); NEUTROPHILS # (AUTO) 12.08 x10^3/uL (1.8-6.8); NEUTROPHILS % (AUTO) 96 % (42-75)
[2018-09-29] MEDS: ALBUTEROL/IPRATROPIUM 2.5MG/0.5MG, 3 ML HHN SCH (06:56)
[2018-09-29 07:34] VITALS: BP 171/102
[2018-09-29] MEDS: MULTIVITS,STRESS FORMULA 1 TABLET PO SCH (08:34)
[2018-09-29] MEDS: CHOLECALCIFEROL 5,000u TAB PO SCH (08:34)
[2018-09-29] MEDS: MAGNESIUM OXIDE 400 MG TABLET PO SCH ×2 (08:34→20:18)
[2018-09-29] MEDS: AZITHROMYCIN 500 MG TABLET PO SCH (08:34)
[2018-09-29] MEDS: LOSARTAN 25MG TABLET PO SCH ×2 (08:34→20:18)
[2018-09-29] MEDS: ASPIRIN 81 MG TABLET EC PO SCH (08:34)
[2018-09-29] MEDS: FUROSEMIDE 40 MG TABLET PO SCH (08:34)
[2018-09-29] MEDS: TIMOLOL OPHTH 0.5%, 5ML OP SCH (08:35)
[2018-09-29 11:01] LABS: HEMOGLOBIN A1C 6.4 % (4.2-6.3)
[2018-09-29] MEDS: CEFTRIAXONE PMX 1GM/50ML 50 ML IV SCH (11:27)
[2018-09-29 12:30] VITALS: BP 145/81
[2018-09-29] MEDS: METOPROLOL TARTRATE 25 MG TABLET PO SCH ×2 (13:16→20:19)
[2018-09-29 19:06] VITALS: BP 133/92
[2018-09-29] MEDS: MONTELUKAST 10 MG TABLET PO SCH (20:18)
[2018-09-29] MEDS: LATANOPROST OPHTH 0.005%, 2.5ML RIGHTEYE SCH (20:19)
[2018-09-29] MEDS: ALBUTEROL/IPRATROPIUM 2.5MG/0.5MG, 3 ML NPPB SCH (20:36)
[2018-09-29 23:31] VITALS: BP 172/103
[2018-09-30 00:50] VITALS: BP 166/100
[2018-09-30] MEDS: METOPROLOL TARTRATE 25 MG TABLET PO SCH (05:17)
[2018-09-30 05:45] LABS: MEAN CORPUSCULAR HEMOGLOBIN 35.1 pg (27.5-34.5); MEAN CORPUSCULAR HGB CONC 32.4 g/dL (33.2-36.2); MEAN CORPUSCULAR VOLUME 108.2 fL (81-97); MEAN PLATELET VOLUME 7.7 fL (7.4-10.4); PLATELET COUNT 234 x10^3/uL (130-400); RED BLOOD COUNT 4.15 x10^6/uL (4.38-5.82); RED CELL DISTRIBUTION WIDTH 15.7 % (9.4-14.8)
[2018-09-30 05:47] LABS: ANION GAP 8 mmol/L (5-15); CHLORIDE 104 mmol/L (98-107); CREATININE 1.44 mg/dL (0.7-1.3)
[2018-09-30 06:14] LABS: BASOPHILS # (AUTO) 0.01 x10^3/uL (0-0.1); BASOPHILS % (AUTO) 0 % (0-1); EOSINOPHILS % (AUTO) 0 % (1-7); LYMPHOCYTES % (AUTO) 3 % (22-44); MD SCAN; MONOCYTES # (AUTO) 0.91 x10^3/uL (0.2-0.8); MONOCYTES % (AUTO) 6 % (2-9); NEUTROPHILS # (AUTO) 13.72 x10^3/uL (1.8-6.8); NEUTROPHILS % (AUTO) 91 % (42-75)
[2018-09-30 08:02] VITALS: BP 143/93
[2018-09-30] MEDS: FUROSEMIDE 40 MG TABLET PO SCH (08:21)
[2018-09-30] MEDS: MAGNESIUM OXIDE 400 MG TABLET PO SCH (08:21)
[2018-09-30] MEDS: MULTIVITS,STRESS FORMULA 1 TABLET PO SCH (08:21)
[2018-09-30] MEDS: AZITHROMYCIN 500 MG TABLET PO SCH (08:22)
[2018-09-30] MEDS: ASPIRIN 81 MG TABLET EC PO SCH (08:22)
[2018-09-30] MEDS: TIMOLOL OPHTH 0.5%, 5ML OP SCH (08:22)
[2018-09-30] MEDS: CHOLECALCIFEROL 5,000u TAB PO SCH (08:22)
[2018-09-30] MEDS: LOSARTAN 25MG TABLET PO SCH (08:22)
[2018-09-30] MEDS: ALBUTEROL/IPRATROPIUM 2.5MG/0.5MG, 3 ML NPPB SCH (08:41)
[2018-09-30] MEDS ORDERED: LATA2.5D3 RIGHTEYE (09:01)
[2018-09-30] MEDS ORDERED: TIMO5DRO5 OP (09:01)
[2018-09-30] MEDS ORDERED: MONT10TA9 PO (09:01)
[2018-09-30] MEDS ORDERED: PRED20TA PO (09:01)
[2018-09-30] MEDS ORDERED: MAGN400T50 PO (09:01)
[2018-09-30] MEDS ORDERED: METO25TA35 PO (09:01)
[2018-09-30] MEDS ORDERED: AZIT500T5 PO (09:01)
[2018-09-30] MEDS ORDERED: FURO40TA6 PO (09:01)
== END 2018-09-30 11:18 | disposition home or self-care (01) | DRG 291 ==
LOC: ED 10:37 → EDIP 10:38 → ED 10:58 → 3NW 11:18 → ED 11:18 → 3NW 11:18 → ED 11:44 → 4WST 15:08 → 5SO 15:42 → 4WST 09-26 11:46
PROVIDERS: ADMIT Hospitalist; ATTEND Hospitalist
PROC: 5A09357 Assistance with Respiratory Ventilation, Less than 24 Consecutive Hours, Continuous Positive Airway Pressure (ICD-10-PCS; principal; 2018-09-25)
PROC: 5A09357 Assistance with Respiratory Ventilation, Less than 24 Consecutive Hours, Continuous Positive Airway Pressure (ICD-10-PCS; 2018-09-26)
DX: I13.0 Hypertensive heart and chronic kidney disease with heart failure and stage 1 through stage 4 chronic kidney disease, or unspecified chronic kidney disease (principal); J96.21 Acute and chronic respiratory failure with hypoxia; I50.33 Acute on chronic diastolic (congestive) heart failure; J18.1 Lobar pneumonia, unspecified organism; I48.1 Persistent atrial fibrillation; D68.69 Other thrombophilia; J98.11 Atelectasis; N17.9 Acute kidney failure, unspecified; I27.81 Cor pulmonale (chronic); Z66 Do not resuscitate; E11.22 Type 2 diabetes mellitus with diabetic chronic kidney disease; G47.33 Obstructive sleep apnea (adult) (pediatric); H91.90 Unspecified hearing loss, unspecified ear; I27.29 Other secondary pulmonary hypertension; I50.82 Biventricular heart failure; J20.9 Acute bronchitis, unspecified; J43.9 Emphysema, unspecified; N18.3 Chronic kidney disease, stage 3 (moderate); N40.0 Benign prostatic hyperplasia without lower urinary tract symptoms; Z53.9 Procedure and treatment not carried out, unspecified reason; Z79.899 Other long term (current) drug therapy; Z80.3 Family history of malignant neoplasm of breast; Z80.6 Family history of leukemia; Z85.118 Personal history of other malignant neoplasm of bronchus and lung; Z87.891 Personal history of nicotine dependence; Z92.3 Personal history of irradiation; Z97.0 Presence of artificial eye; Z99.81 Dependence on supplemental oxygen; Z88.8 Allergy status to other drugs, medicaments and biological substances
CPT/HCPCS: 36415; 71045; 80048; 80053; 83036; 83735; 83880; 84443; 84484; 85025; 93005; 93970; 94640; 94667; 94668; G0378; J0696; J7620; J1940; J2930; J7512

== ENCOUNTER 2018-10-05 09:10 | Inpatient (IN) | payer MEDICARE ==
[~2018-10-05] VITALS: Ht 188 cm; Wt 104.5 kg
[2018-10-15 15:39] VITALS: BP 89/62
== END 2018-10-15 16:56 | disposition expired | DRG 871 ==
LOC: ED 09:41 → EDIP 11:43 → 4WST 13:09
PROVIDERS: ADMIT Internal Medicine; ATTEND Internal Medicine
PROC: 5A09357 Assistance with Respiratory Ventilation, Less than 24 Consecutive Hours, Continuous Positive Airway Pressure (ICD-10-PCS; principal; 2018-10-09)
PROC: 5A09357 Assistance with Respiratory Ventilation, Less than 24 Consecutive Hours, Continuous Positive Airway Pressure (ICD-10-PCS; 2018-10-10)
PROC: 5A09357 Assistance with Respiratory Ventilation, Less than 24 Consecutive Hours, Continuous Positive Airway Pressure (ICD-10-PCS; 2018-10-11)
PROC: 5A09357 Assistance with Respiratory Ventilation, Less than 24 Consecutive Hours, Continuous Positive Airway Pressure (ICD-10-PCS; 2018-10-12)
DX: A41.9 Sepsis, unspecified organism (principal); J96.21 Acute and chronic respiratory failure with hypoxia; G93.41 Metabolic encephalopathy; J15.1 Pneumonia due to Pseudomonas; D68.69 Other thrombophilia; E46 Unspecified protein-calorie malnutrition; I13.0 Hypertensive heart and chronic kidney disease with heart failure and stage 1 through stage 4 chronic kidney disease, or unspecified chronic kidney disease; I50.32 Chronic diastolic (congestive) heart failure; N17.9 Acute kidney failure, unspecified; Z88.8 Allergy status to other drugs, medicaments and biological substances; D64.9 Anemia, unspecified; D69.6 Thrombocytopenia, unspecified; D75.89 Other specified diseases of blood and blood-forming organs; E11.21 Type 2 diabetes mellitus with diabetic nephropathy; E11.22 Type 2 diabetes mellitus with diabetic chronic kidney disease; Z68.29 Body mass index [BMI] 29.0-29.9, adult; G47.33 Obstructive sleep apnea (adult) (pediatric); I07.1 Rheumatic tricuspid insufficiency; I27.29 Other secondary pulmonary hypertension; I27.81 Cor pulmonale (chronic); I35.8 Other nonrheumatic aortic valve disorders; I48.2 Chronic atrial fibrillation; I50.82 Biventricular heart failure; J43.9 Emphysema, unspecified; N18.3 Chronic kidney disease, stage 3 (moderate); Z66 Do not resuscitate; Z79.52 Long term (current) use of systemic steroids; Z79.84 Long term (current) use of oral hypoglycemic drugs; Z80.3 Family history of malignant neoplasm of breast; Z80.6 Family history of leukemia; Z82.49 Family history of ischemic heart disease and other diseases of the circulatory system; Z85.118 Personal history of other malignant neoplasm of bronchus and lung; Z87.891 Personal history of nicotine dependence; Z92.21 Personal history of antineoplastic chemotherapy; Z92.3 Personal history of irradiation; Z97.0 Presence of artificial eye; Z99.81 Dependence on supplemental oxygen
CPT/HCPCS: 36415; 36600; 70450; 71045; 71250; 74018; 74176; 74230; 80048; 80053; 80069; 81001; 82040; 82272; 82436; 82570; 82728; 82803; 82962; 83036; 83540; 83550; 83605; 83735; 83880; 84133; 84145; 84156; 84300; 84443; 84484; 85025; 87015; 87040; 87070; 87077; 87102; 87107; 87116; 87186; 87205; 87206; 87305; 87324; 87449; 93005; 93306; 94640; 96365; 96368; G0378; J0456; J0696; J1644; J2020; J2543; J7620; J7626; J1815; J1940; J2920; J2930; J7030; J7050; J7512